=== PATIENT | female | born 1945 | race Caucasian/White ===

== ENCOUNTER → 2016-04-23 | Outpatient (CLI) | payer BC ==
[~2016-04-23] MED LIST: AMIO200T4 PO; AMR2 PO; CETI10TA84 PO; CRD200 PO; CYAN3INJ IM; DILT120C PEG; DILT120C PO; DILT120C68 PO; DULA1INJ SC; ERGO500037 PO; EZET10TA47 PO; GLIM2TAB2 PO; LEVO125T72 PO; LEVO137T3 PO; METF1000 PO; OMEG1360 PO; POTA20TA13 PO; POTA20TA16 PO; PRAV10TA39 PO; RANI150C4 PO; RANI150T2 PO; SERT50TA PO; SYN137 PO; TRIA37.5 PO; WARF-246 PO; WARF5TAB7 PO; ZLF/50 PO; [UNRECOGNIZED DRUG - CODE] PO; [UNRECOGNIZED DRUG - CODE] TOP
--- NOTE | 2016-04-29 07:16 | CODING QUERY NO DIAGNOSIS ---
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 Please assist us with providing a diagnosis/symptom for the test(s) below: A diagnosis/symptom was not documented on your Order. A valid diagnosis/symptom is required to bill all insurances. Please remember that we are unable to code a diagnosis of rule out, probable, possible, questionable, or suspected. Tests that require a diagnosis: * ERYTHROCYTE SEDIMENT DOS: 04/23/16 DIAGNOSIS: * C-REACTIVE PROTEIN DOS: 04/23/16 DIAGNOSIS: Provider Signature: Date: Thank you Kristen Plummer Health Information Management Once completed, please kindly fax back to [phone] For questions please call [phone]
== END | disposition home or self-care (01) ==
LOC: C.LABMFLN 09:18
PROVIDERS: ATTEND Optometrist
DX: M31.6 Other giant cell arteritis (principal)

== ENCOUNTER → 2016-07-07 | Day surgery (SDC) | payer BC ==
[2016-06-17 11:34] VITALS: BMI 44.0
[2016-06-30 15:50] VITALS: Ht 152.4 cm; Wt 102.3 kg
[~2016-07-07] VITALS: Ht 152.4 cm; Wt 102.3 kg
[~2016-07-07] MED LIST changes: +500ML BSS 0.3ML EPI 1:1000PF IRRIG ONE; +ACETAMINOPHEN 325 MG TAB PO PRN; +AMVISC PLUS 0.8ML SYRINGE INT OCU ONE; +ATROPINE SULFATE 0.1 MG/ML 5ML SYR IV PRN; +AcetaZOLAMIDE 250 MG TAB PO SCH; +BETAXOLOL HCL 0.25% OP SUSP PER DROP CHARGE OPL SCH; +BRIMONIDINE TART 0.2% OP SOLN PER DROP CHARGE ONE; +BSS FLUSH ONE; -CRD200 PO; +CYCLOPENTOLATE HCL 1% OP SOLN PER DROP CHARGE OPL SCH; +ENDOCOAT 0.85ML SYRINGE INT OCU ONE; -ERGO500037 PO; -EZET10TA47 PO; +EpHEDrine SULFATE INJ 50 MG/ML AMP IV PRN; +EpINEphrine INJ 1MG/ML AMP 1 MG/ML AMP ONE; +FENTANYL CITRATE INJ 50 MCG/1 ML 2 ML VIAL ONE; +LACTATED RINGER'S 1000ML 500 ML IV SCH; -LEVO125T72 PO; +LIDOCAINE 4% OP SOLN DROP CHARGE ONE; +LIDOCAINE 4% OP SOLN DROP CHARGE OPL SCH; +LIDOCAINE HCL 1% MPF 2 ML VIAL ONE; -METF1000 PO; +MIDAZOLAM HCL 1 MG/ML 2ML VIAL ONE; +MIX: 4ML BSS 1ML EPI 1:1000 PF INSTIL ONE; +MOXIFLOXACIN OPH SOLN PER DROP CHARGE ONE; +MOXIFLOXACIN OPH SOLN PER DROP CHARGE OPL SCH; +OCUCOAT 1 ML SOLN IO ONE; +PHENYLEPHRINE HCL 2.5% OP SOLN PER DROP CHARGE OPL SCH; +POVIDONE-IODINE OP SOLN 30 ML BTL ONE; +PROPARACAINE 0.5% OP SOLN PER DROP CHARGE OPL SCH; +TOBRAMYCIN/DEXAMETHASONE OPH OINT PER APPLN CHARGE ONE; +TROPICAMIDE 1% OP SOLN PER DROP CHARGE OPL SCH; -WARF-246 PO; -[UNRECOGNIZED DRUG - CODE] TOP
--- NOTE | 2016-07-07 07:33 | History & Physical Bridge - SC ---
H&P Re-Evaluation Bridge Note: I have examined the patient, reviewed the History & Physical and in the interval since the performance of the History & Physical I have noted the following changes of clinical significance: No changes noted
[2016-07-07] MEDS: PHENYLEPHRINE HCL 2.5% OP SOLN PER DROP CHARGE OPL SCH ×2 (07:53→07:58)
[2016-07-07] MEDS: TROPICAMIDE 1% OP SOLN PER DROP CHARGE OPL SCH ×2 (07:54→07:59)
[2016-07-07] MEDS: CYCLOPENTOLATE HCL 1% OP SOLN PER DROP CHARGE OPL SCH ×2 (07:55→08:00)
[2016-07-07] MEDS: MOXIFLOXACIN OPH SOLN PER DROP CHARGE OPL SCH ×2 (07:56→08:06)
[2016-07-07] MEDS: POVIDONE-IODINE OP SOLN 30 ML BTL ONE ×2 (08:55→08:58)
--- NOTE | 2016-07-07 09:03 | Discharge Instructions-SurgCtr ---
Discharge Instructions Date of Service Jul 07, 2016. Visit Reason for Visit: Cataract Left Eye Discharge Discharge Diagnosis / Problem: lens implant left eye Discharge Goals Goal(s): Improve function Activity Recommendations Activity Limitations: resume your previous activity Lifting Limitations: no more than 10 pounds Exercise/Sports Limitations: gradually increase as tolerated May Resume Sexual Activity: when tolerated Shower/Bathe: tomorrow Driving or Machine Use: resume 1 day after discharge Anesthesia . Post Anesthesia Instructions: If you have had General Anesthesia or IV Sedation: * Do not drive today. * Resume driving when surgeon permits. * Do not make important decisions or sign legal documents today. * Call surgeon for: 1. Temperature elevations greater than 101 degrees F. 2. Uncontrollable pain. 3. Excessive bleeding. 4. Persistent nausea and vomiting. 5. Medication intolerance (nausea, vomiting or rash). * For nausea and vomiting use only clear liquids such as: tea, soda, bouillon until nausea subsides, then gradually increase diet as tolerated. * If you have any concerns or questions, call your surgeon's office. If physician is unavailable and it is an emergency, call 911 or go to the nearest emergency room. . Instructions / Follow-Up Instructions / Follow-Up ACTIVITY RECOMMENDATIONS: * Light activities. * Mild irritation and blurred vision are common for the first few days. * You may walk outside, read, watch television. * Redness around the white part of the eye is common. MEDICATIONS: Resume previous medications unless instructed otherwise by your surgeon. * Take white Diamox (Acetazolamide) tablet at 1 pm today. Start all eye drops at 1 pm today: * Eye drops (today and tomorrow): Prednisone - one drop in operative eye every 3 hours while awake Ofloxacin - one drop in operative eye every 3 hours while awake SPECIAL CARE INSTRUCTIONS: * Tape plastic shield over eye to sleep at night. Call your doctor at with any concerns or problems. FOLLOW UP VISIT: Follow-up with Dr Frost at [place] office as scheduled. Diet Recommendations Home Diet: no limitations Procedures Procedures Performed: cataract extraction with lens implant Pending Studies Studies pending at discharge: no Medical Emergencies . Who to Call and When: Medical Emergencies: If at any time you feel your situation is an emergency, please call 911 immediately. . Non-Emergent Contact Non-Emergency issues call your: Engineer Specialist Call Non-Emergent contact if: your pain is not controlled [phone] . . "Provider Documentation" section prepared by Neil Frost.
--- NOTE | 2016-07-07 09:05 | [facility] Operative Report ---
Operative Report Date of Service Jul 07, 2016. Operative Report 1. PREOPERATIVE DIAGNOSIS: Senile nuclear cataract, left eye. 2. POSTOPERATIVE DIAGNOSIS: Senile nuclear cataract, left eye. 3. PROCEDURE: Phacoemulsification of left cataract with posterior chamber lens implant, type [employer], model MI60L, power +18.0 diopters. ANESTHESIA: Local standby. SURGEON: Dr. Frost. COMPLICATIONS: None. OPERATING TIME: 10 minutes. 4. OPERATION AND FINDINGS: DESCRIPTION OF PROCEDURE: The left pupil was dilated. The anesthetic was administered using a topical technique. The left eye was prepped and draped. A speculum was placed. A clear corneal incision was formed. The chamber was filled with Amvisc Plus and Endocoat. Epinephrine solution was used. A paracentesis was placed. A capsulorrhexis was performed. The nucleus was hydrodissected. A dense lens was removed with phacoemulsification. Time was 7.02 seconds. The aspiration unit was used to remove the cortex. The capsule was filled with Amvisc Plus. The lens implant was folded and placed into the capsule. The incision was hydrated. The Amvisc was aspirated. The wound was secure. The chamber was deep. The pupil was round. TobraDex ointment and Vigamox solution were placed. The speculum was removed. The patient was returned to the Recovery Room in stable condition. I attest to the content of the Intraoperative Record and any orders documented therein. Any exceptions are noted below. The scribe's documentation has been prepared in my presence, under my direction and personally reviewed by me in its entirety. I confirm that the note above accurately reflects all work, treatment, procedures, and medical decision making performed by me. I personally scribed for Neil Frost M.D. ([email or web address]) on 07/07/16 at 09:05. Electronically submitted by Giulia Lovett ([facility]).
[2016-07-07 09:10] VITALS: TEMP 36.5
[2016-07-07 09:35] VITALS: BP 146/73; PULSE 72; O2SAT 97
--- NOTE | 2016-07-07 09:48 | Anesthesia Progress Nt - [facility] ---
Anesthesia Post Op Note Date & Time Jul 07, 2016 at 09:48 Vital Signs Pain Intensity: 0 Vital Signs Past 12 Hours Date Time Temp Pulse Resp B/P Pulse Ox O2 Delivery O2 Flow Rate FiO2 07/07/16 09:35 72 146/73 97 Room Air 07/07/16 09:10 36.5 59 20 152/73 94 Room Air 07/07/16 08:08 36.5 67 16 172/79 96 Room Air Notes Mental Status: alert / awake / arousable, participated in evaluation Pt Amnestic to Procedure: Yes Nausea / Vomiting: adequately controlled Pain: adequately controlled Airway Patency, RR, SpO2: stable & adequate BP & HR: stable & adequate Hydration State: stable & adequate Anesthetic Complications: no major complications apparent The patient was instructed to wear her CPAP whenever she thinks she may fall asleep for the next 24 hours at least as the anesthesia may make her more prone to apnea. She understands and agrees.
== END | disposition home or self-care (01) ==
LOC: X.SURG 07:29
PROVIDERS: ATTEND Specialist
DX: H25.12 Age-related nuclear cataract, left eye (principal); I10 Essential (primary) hypertension; I51.9 Heart disease, unspecified; Z88.8 Allergy status to other drugs, medicaments and biological substances

== ENCOUNTER → 2016-07-29 | Outpatient (CLI) | payer BC ==
[~2016-07-29] MED LIST changes: -500ML BSS 0.3ML EPI 1:1000PF IRRIG ONE; -ACETAMINOPHEN 325 MG TAB PO PRN; -AMVISC PLUS 0.8ML SYRINGE INT OCU ONE; -ATROPINE SULFATE 0.1 MG/ML 5ML SYR IV PRN; -AcetaZOLAMIDE 250 MG TAB PO SCH; -BETAXOLOL HCL 0.25% OP SUSP PER DROP CHARGE OPL SCH; -BRIMONIDINE TART 0.2% OP SOLN PER DROP CHARGE ONE; -BSS FLUSH ONE; -CYCLOPENTOLATE HCL 1% OP SOLN PER DROP CHARGE OPL SCH; -ENDOCOAT 0.85ML SYRINGE INT OCU ONE; -EpHEDrine SULFATE INJ 50 MG/ML AMP IV PRN; -EpINEphrine INJ 1MG/ML AMP 1 MG/ML AMP ONE; -FENTANYL CITRATE INJ 50 MCG/1 ML 2 ML VIAL ONE; -LACTATED RINGER'S 1000ML 500 ML IV SCH; -LIDOCAINE 4% OP SOLN DROP CHARGE ONE; -LIDOCAINE 4% OP SOLN DROP CHARGE OPL SCH; -LIDOCAINE HCL 1% MPF 2 ML VIAL ONE; -MIDAZOLAM HCL 1 MG/ML 2ML VIAL ONE; -MIX: 4ML BSS 1ML EPI 1:1000 PF INSTIL ONE; -MOXIFLOXACIN OPH SOLN PER DROP CHARGE ONE; -MOXIFLOXACIN OPH SOLN PER DROP CHARGE OPL SCH; -OCUCOAT 1 ML SOLN IO ONE; -PHENYLEPHRINE HCL 2.5% OP SOLN PER DROP CHARGE OPL SCH; -POVIDONE-IODINE OP SOLN 30 ML BTL ONE; -PROPARACAINE 0.5% OP SOLN PER DROP CHARGE OPL SCH; -TOBRAMYCIN/DEXAMETHASONE OPH OINT PER APPLN CHARGE ONE; -TROPICAMIDE 1% OP SOLN PER DROP CHARGE OPL SCH
[2016-07-29 18:06] LABS: HEMATOCRIT 38.7 % (37-47); MEAN CELL VOLUME 82.5 fL (80-100); MEAN CORPUSCULAR HEMOGLOBIN 25.6 pg (25-34); PLATELET COUNT 192 K/uL (130-400); RED BLOOD COUNT 4.69 M/uL (4.2-5.4)
== END | disposition home or self-care (01) ==
LOC: C.LABMFLN 10:51
PROVIDERS: ATTEND Family Medicine
DX: M10.9 Gout, unspecified (principal)

== ENCOUNTER → 2016-08-31 | Outpatient (CLI) | payer BC ==
[2016-08-31 17:44] LABS: HEMATOCRIT 38.5 % (37-47); MEAN CELL VOLUME 84.2 fL (80-100); MEAN CORPUSCULAR HEMOGLOBIN 25.8 pg (25-34); MEAN CORPUSCULAR HGB CONC 30.6 g/dl (32-36); MEAN PLATELET VOLUME 11.7 fL (7.4-10.4); PLATELET COUNT 210 K/uL (130-400); RED BLOOD COUNT 4.57 M/uL (4.2-5.4); WHITE BLOOD COUNT 7.29 K/uL (4.8-10.8)
[2016-08-31 18:07] LABS: ALT/SGPT 52 U/L (12-78); AST/SGOT 60 U/L (15-37); BLOOD UREA NITROGEN 18 mg/dl (7-18); BUN/CREATININE RATIO 16.2 (10-20); CALCIUM 9.3 mg/dl (8.5-10.1); CARBON DIOXIDE 31 mmol/L (21-32); CHLORIDE 107 mmol/L (98-107); GLUCOSE 116 mg/dl (70-99); POTASSIUM 3.8 mmol/L (3.5-5.1); SODIUM 143 mmol/L (136-145)
[2016-09-01 05:51] LABS: ESTIMATED AVERAGE GLUCOSE 180 mg/dl; HA1C FLAG Normal (Normal)
== END | disposition home or self-care (01) ==
LOC: C.LABMFLN 13:59
PROVIDERS: ATTEND Family Medicine
DX: E11.9 Type 2 diabetes mellitus without complications (principal); I10 Essential (primary) hypertension; E78.5 Hyperlipidemia, unspecified; I47.2 Ventricular tachycardia; Z79.01 Long term (current) use of anticoagulants; R94.2 Abnormal results of pulmonary function studies; Z79.899 Other long term (current) drug therapy; R74.0 Nonspecific elevation of levels of transaminase and lactic acid dehydrogenase [LDH]; I48.0 Paroxysmal atrial fibrillation

== ENCOUNTER → 2016-09-20 | Outpatient (CLI) | payer BC ==
--- NOTE | 2016-09-20 16:22 | DIAGNOSTIC IMAGING REPORT ---
[facility] CLINICAL HISTORY: N20.0 [id number] flank pain COMPARISON STUDY: 11/05/2015 FINDINGS: Nonobstructive bowel pattern. No evidence for significant nephrocalcinosis. Several right and to lesser extent left pelvic vascular calcifications unchanged. IMPRESSION: No evidence for nephrocalcinosis. No change from the prior study. Electronically signed by: Issa Vigil M.D. 09/20/2016 4:21 PM Dictated Date/Time: 09/20/2016 4:20 PM
== END | disposition home or self-care (01) ==
LOC: C.RAD 15:48
PROVIDERS: ATTEND Urology
DX: R31.29 Other microscopic hematuria (principal); N39.41 Urge incontinence; N20.0 Calculus of kidney

== ENCOUNTER 2016-11-13 21:15 | Emergency (ER) | payer BC ==
[~2016-11-13 21:15] MED LIST changes: -AMIO200T4 PO; -AMR2 PO; -DILT120C PEG; -DILT120C PO; -DULA1INJ SC; -POTA20TA13 PO; -RANI150T2 PO; -SYN137 PO; -ZLF/50 PO
[2016-11-13 21:18] VITALS: TEMP 36.8; Ht 152.4 cm
--- NOTE | 2016-11-13 21:39 | EMERGENCY ROOM VISIT NOTE ---
History First contact with patient: 21:21 Chief Complaint: ANKLE PAIN Stated Complaint: HURT LEFT ANKLE History of Present Illness The patient is a 70 year old female who presents to the Emergency Room via private vehicle with complaints of "her left ankle". The patient states that earlier today, around 8 AM, she was going outside to collect her morning paper, when her left foot twisted inward. She states that she experienced immediate pain, and has had difficulty walking on this region. If she bears weight on the left foot/ankle pain as a 10/10. At rest the pain is very minimal. She denies any numbness or tingling in the distal extremity. She points to the base of the left fifth metatarsal as a location of pain. Review of Systems A complete 6-point Review of Systems was discussed with the patient, with pertinent positives and negatives listed in the History of Present Illness. All remaining Review of Systems questions can be considered negative unless otherwise specified. Past Medical/Surgical History Medical Problems: (1) Atrial fibrillation (2) Benign hypertension (3) Cholecystectomy (4) Diabetes mellitus (5) Heart disease (6) Surgery of Retina Family History No pertinent. Social History Smoking Status: Never Smoker Alcohol Use: none Marital Status: Housing Status: lives with family Occupation Status: unemployed Current/Historical Medications Scheduled Amiodarone Hcl (Cordarone), 200 MG PO DAILY Diltiazem Hcl Coated Beads (Diltiazem Hcl Er), 240 MG PO QAM Diltiazem Hcl Coated Beads (Diltiazem Hcl Er), 120 MG PEG HS Dulaglutide (Trulicity), 0.75 MG SC WK Glimepiride (Glimepiride), 4 MG PO BID Levothyroxine Sodium (Levothyroxine Sodium), 137 MCG PO DAILY Kingsley-3 Fatty Acids (Fish Oil), 1 CAP PO BID Potassium Chloride Microencaps (Potassium Chloride Er), 20 MEQ PO DAILY Pravastatin Sodium (Pravastatin Sodium), 10 MG PO HS Ranitidine HCl (Ranitidine HCl), 150 MG PO BID Sertraline HCl (Sertraline HCl), 50 MG PO DAILY Triamterene/Hctz (Dyazide 37.5MG/25MG), 1 TAB PO QAM Warfarin Sod (Jantoven), 5 MG PO DAILY Physical Exam Vital Signs Date Time Temp Pulse Resp B/P (MAP) Pulse Ox O2 Delivery O2 Flow Rate FiO2 7/29/17 22:42 75 18 186/77 95 11/13/16 21:18 36.8 75 18 186/77 95 Room Air Physical Exam VITAL SIGNS - Vital signs and nursing notes were reviewed. Afebrile, hypertensive at 186/77, non-tachycardic and is saturating well on room air 95%. GENERAL -70-year-old female appearing her stated age who is in no acute distress. Communicates well with provider and answers questions appropriately. SKIN - Without rashes. Skin overlying the left ankle is slightly edematous, but intact. No excessive erythema.ons or visible masses. BS normoactive all four quadrants. No tenderness, palpable masses, hepatosplenomegaly, or ascites noted. EXTREMITIES - No clubbing or peripheral cyanosis. No pretibial edema present. There is tenderness to palpation overlying the base of the fifth metatarsal. There is overlying edema. Decreased range of motion secondary to pain. There is no proximal or distal tenderness. She is neurovascularly intact in this region. Medical Decision & Procedures ER Provider Diagnostic Interpretation: LEFT FOOT MIN 3 VIEWS ROUTINE CLINICAL HISTORY: Left foot pain s/p inversion injury. 5th metatarsal tenderness COMPARISON: None FINDINGS: Alignment of the tarsometatarsal joints is anatomic anatomic. No acute fracture is identified within the left foot. Moderate osteoarthritis is noted within multiple articulations of the left foot, most pronounced within the left first metatarsophalangeal joint. There is moderate vascular calcification. IMPRESSION: 1. No acute fracture or dislocation of the left foot. 2. 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 Electronically signed by: Yash Rolle M.D. 11/13/2016 10:04 PM Dictated Date/Time: 11/13/2016 10:02 PM LEFT TIBIA/FIBULA 2 VIEWS ROUTINE CLINICAL HISTORY: Left foot pain s/p inversion injury. 5th metatarsal tenderness. COMPARISON: None FINDINGS: Alignment of the left knee and left ankle is anatomic. A few well-corticated ossicles along the fibular tip are age-indeterminate but likely old. There is moderate vascular calcification. No acute fracture of the left tibia or fibula is identified. There is chondrocalcinosis within the left knee. There is patellar spurring. IMPRESSION: 1. No definite acute fracture of the left tibia or fibula. 2. A few well-corticated ossicles along the fibular tip. These are age-indeterminate but probably old. Electronically signed by: Yash Rolle M.D. 11/13/2016 10:01 PM Dictated Date/Time: 11/13/2016 9:59 PM Medical Decision Patient was seen and evaluated as above. After pain a thorough history and physical examination radiographs were obtained with results as above. No acute fracture dislocation. Patient fell landing for pain. She was also seen by my attending. She was educated upon today's findings. There is concern over a potential new avulsion fracture, therefore we will fit her with a walking boot secondary to her noting the crutches would not work well. She is going to use her walker at home. She is to follow-up with her family doctor regarding today' s visit. They have been copied on her x-rays today. She is to follow up regarding her elevated blood pressure here today. She was educated upon worrisome symptoms which to return, had questions prior to discharge, and was discharged home in good condition. In the evaluation and treatment of this patient, the following differential diagnoses were considered: Ankle Fracture, Ankle Sprain, Distal Fibula Fracture , Distal Tibia Fracture, Foot Fracture, Maisonneuve Fracture. Medication Reconcilliation Current Medication List: was personally reviewed by me Blood Pressure Screening Patient's blood pressure: Elevated blood pressure Blood pressure disposition: Elevated BP felt to be situational, Referred to PCP Impression Primary Impression: Left ankle pain Departure Information Dispostion Home / Self-Care Condition GOOD Referrals Pilar Robertson M.D. (PCP) Benjamin Ye D.O. Patient Instructions My [facility] Additional Instructions You have been treated in the Emergency Department for a left Ankle pain. For pain control, you can use the following [id number] medicines (if >12 yo): - Regular strength (325mg/tab) Tylenol (acetaminophen) 2 tabs every 4-6 hours as needed. Do not exceed 12 tablets in a 24 hour period. Avoid taking more than 3 grams (3000 mg) of Tylenol per day. This includes any other sources of acetaminophen you may take on a regular basis. - Regular strength (200 mg/tab) Advil (ibuprofen) 1-2 tabs every 4-6 hours as needed. Do not exceed a dose of 3200 mg per day. If this is a recent injury (<24 hrs), ice can be applied to the area of pain for the first 3 days to help decrease pain and inflammation. You have been provided the number for an Orthopaedic Surgeon. You should call this number as soon as possible to establish a follow-up visit from today's Emergency Department visit. Keep the ankle brace/splint in place until cleared by Orthopedics/ family doctor. Please use your walker to keep ALL weight off of the ankle until weight bearing is tolerable. Return to the Emergency Department if your current symptoms worsen despite treatment course outlined above, or if you develop any of the following symptoms : intractable pain despite aforementioned treatment course or new onset of numbness or tingling of the foot. Please return to the emergency department with any new/ concerning symptoms.
--- NOTE | 2016-11-13 21:58 | EMERGENCY ROOM VISIT NOTE ---
ED Visit Note First contact with patient: 21:21 This Patient was discussed with the physician Clerical Clerk, Kyle Barajas PA-C. The pertinent historical and physical exam findings were confirmed. I agree with the studies ordered and with the interpretations of these studies. I agree with the disposition and care plan.
--- NOTE | 2016-11-13 22:03 | DIAGNOSTIC IMAGING REPORT ---
LEFT TIBIA/FIBULA 2 VIEWS ROUTINE CLINICAL HISTORY: Left foot pain s/p inversion injury. 5th metatarsal tenderness. COMPARISON: None FINDINGS: Alignment of the left knee and left ankle is anatomic. A few well-corticated ossicles along the fibular tip are age-indeterminate but likely old. There is moderate vascular calcification. No acute fracture of the left tibia or fibula is identified. There is chondrocalcinosis within the left knee. There is patellar spurring. IMPRESSION: 1. No definite acute fracture of the left tibia or fibula. 2. A few well-corticated ossicles along the fibular tip. These are age-indeterminate but probably old. Electronically signed by: Yash Rolle M.D. 11/13/2016 10:01 PM Dictated Date/Time: 11/13/2016 9:59 PM
--- NOTE | 2016-11-13 22:05 | DIAGNOSTIC IMAGING REPORT ---
LEFT FOOT MIN 3 VIEWS ROUTINE CLINICAL HISTORY: Left foot pain s/p inversion injury. 5th metatarsal tenderness COMPARISON: None FINDINGS: Alignment of the tarsometatarsal joints is anatomic anatomic. No acute fracture is identified within the left foot. Moderate osteoarthritis is noted within multiple articulations of the left foot, most pronounced within the left first metatarsophalangeal joint. There is moderate vascular calcification. IMPRESSION: 1. No acute fracture or dislocation of the left foot. 2. 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 Electronically signed by: Yash Rolle M.D. 11/13/2016 10:04 PM Dictated Date/Time: 11/13/2016 10:02 PM
[2016-11-13] MEDS ORDERED: RANI150T2 PO (22:31)
[2016-11-13] MEDS ORDERED: AMIO200T4 PO (22:31)
[2016-11-13] MEDS ORDERED: ZLF/50 PO (22:31)
[2016-11-13] MEDS ORDERED: DILT120C PEG (22:31)
[2016-11-13] MEDS ORDERED: DULA1INJ SC (22:31)
[2016-11-13] MEDS ORDERED: SYN137 PO (22:31)
[2016-11-13] MEDS ORDERED: DILT120C PO (22:31)
[2016-11-13] MEDS ORDERED: AMR2 PO (22:31)
[2016-11-13] MEDS ORDERED: POTA20TA13 PO (22:32)
[2016-11-13 22:42] VITALS: BP 186/77; PULSE 75; O2SAT 95
== END 2016-11-13 22:43 | disposition home or self-care (01) ==
LOC: C.EDB 21:16 → C.EDD 22:43
DX: M25.572 Pain in left ankle and joints of left foot (principal); I48.91 Unspecified atrial fibrillation; I10 Essential (primary) hypertension; E11.9 Type 2 diabetes mellitus without complications; I51.9 Heart disease, unspecified; Z90.49 Acquired absence of other specified parts of digestive tract; Z98.890 Other specified postprocedural states; Z79.01 Long term (current) use of anticoagulants; Z79.899 Other long term (current) drug therapy

== ENCOUNTER → 2016-12-16 | Outpatient (CLI) | payer BC ==
[~2016-12-16] MED LIST changes: +AMIO200T4 PO; +AMR2 PO; -CETI10TA84 PO; -CYAN3INJ IM; +DILT120C PEG; +DILT120C PO; -DILT120C68 PO; +DULA1INJ SC; -GLIM2TAB2 PO; -LEVO137T3 PO; +POTA20TA13 PO; -POTA20TA16 PO; -RANI150C4 PO; +RANI150T2 PO; -SERT50TA PO; +SYN137 PO; +ZLF/50 PO; -[UNRECOGNIZED DRUG - CODE] PO
[2016-12-16 18:37] LABS: RATIO 40.8 mcg/mg (0-30.0)
[2016-12-17 06:36] LABS: ESTIMATED AVERAGE GLUCOSE 151 mg/dl; HA1C FLAG Normal (Normal)
== END | disposition home or self-care (01) ==
LOC: C.LABMFLN 14:18
PROVIDERS: ATTEND Family Medicine
DX: E11.9 Type 2 diabetes mellitus without complications (principal)

== ENCOUNTER → 2017-03-29 | Outpatient (CLI) | payer BC ==
[2017-03-30 08:01] LABS: ESTIMATED AVERAGE GLUCOSE 157 mg/dl; HA1C FLAG Normal (Normal)
== END | disposition home or self-care (01) ==
LOC: C.LABMFLN 15:25
PROVIDERS: ATTEND Family Medicine
DX: E11.9 Type 2 diabetes mellitus without complications (principal)

== ENCOUNTER → 2017-10-06 | Outpatient (CLI) | payer BC ==
[~2017-10-06] MED LIST changes: +CYNI1000 IM; +DILT-213 PO; -DILT120C PEG; -DILT120C PO; +ENOX30IN4 SQ; +FURO-85 PO; +INSU100I23 SC; +LEVO125T72 PO; +SITA100T3 PO; +WARF2.5T8 PO
[2017-10-06 18:25] LABS: BLOOD UREA NITROGEN 18 mg/dl (7-18); CALCIUM 8.7 mg/dl (8.5-10.1); CARBON DIOXIDE 30 mmol/L (21-32); CREATININE 1.13 mg/dl (0.60-1.20); GLUCOSE 153 mg/dl (70-99); POTASSIUM 3.8 mmol/L (3.5-5.1); SODIUM 142 mmol/L (136-145)
== END | disposition home or self-care (01) ==
LOC: C.LABMFLN 12:00
PROVIDERS: ATTEND Family Medicine
DX: I50.9 Heart failure, unspecified (principal)

== ENCOUNTER → 2017-11-07 | Outpatient (CLI) | payer BC ==
[~2017-11-07] MED LIST changes: -DULA1INJ SC; -SYN137 PO; -TRIA37.5 PO
--- NOTE | 2017-11-07 08:00 | DIAGNOSTIC IMAGING REPORT ---
ABDOMINAL ULTRASOUND, RIGHT UPPER QUADRANT HISTORY: Gastric varices. COMPARISON: [facility] September 20, [address] of the abdomen and pelvis April 18, 2014. FINDINGS: Coarsening of hepatic echotexture and slight nodularity of the liver surface are indicative of cirrhosis. Flow within the main portal vein is hepatopedal. No hepatic lesions are identified by sonography. There is trace perihepatic ascites. No biliary ductal dilatation is identified status post cholecystectomy. Common bile measures 5 mm in caliber. Pancreatic body is normal. Head and tail are obscured. There is no right hydronephrosis. IMPRESSION: 1. Cirrhosis. No hepatic lesions identified by sonography. 2. Trace perihepatic ascites. 3. No biliary ductal dilatation status post cholecystectomy. Electronically signed by: Yash Rolle M.D. 11/07/2017 7:58 AM Dictated Date/Time: 11/07/2017 7:57 AM
== END | disposition home or self-care (01) ==
LOC: C.ULTR 07:09
PROVIDERS: ATTEND Internal Medicine
DX: I86.4 Gastric varices (principal); K74.60 Unspecified cirrhosis of liver

== ENCOUNTER → 2017-11-15 | Outpatient (CLI) | payer BC ==
[2017-11-15 17:59] LABS: BASO % 0.2 %; BASO ABS # 0.01 K/uL (0-0.2); EOS % 1.8 %; HEMATOCRIT 36.5 % (37-47); HEMOGLOBIN 10.8 g/dL (12.0-16.0); IG# 0.01 K/uL (0.00-0.02); LYMPH % 16.3 %; LYMPH ABS # 0.91 K/uL (1.2-3.4); MEAN CELL VOLUME 77.7 fL (80-100); MEAN CORPUSCULAR HGB CONC 29.6 g/dl (32-36); MEAN PLATELET VOLUME 11.9 fL (7.4-10.4); NEUT % 72.5 %; NEUT ABS # 4.05 K/uL (1.4-6.5); PLATELET COUNT 142 K/uL (130-400); RED CELL DISTRIBUTION WIDTH CV 18.3 % (11.5-14.5); RED CELL DISTRIBUTION WIDTH SD 51.9 fL (36.4-46.3); WHITE BLOOD COUNT 5.58 K/uL (4.8-10.8)
[2017-11-15 18:03] LABS: ALBUMIN 3.6 gm/dl (3.4-5.0); ALKALINE PHOSPHATASE 98 U/L (45-117); ALT/SGPT 33 U/L (12-78); AST/SGOT 55 U/L (15-37); BLOOD UREA NITROGEN 14 mg/dl (7-18); CALCIUM 9.1 mg/dl (8.5-10.1); CARBON DIOXIDE 32 mmol/L (21-32); CREATININE 1.25 mg/dl (0.60-1.20); GLUCOSE 178 mg/dl (70-99); POTASSIUM 2.9 mmol/L (3.5-5.1); SODIUM 143 mmol/L (136-145); TOTAL PROTEIN 7.5 gm/dl (6.4-8.2)
== END | disposition home or self-care (01) ==
LOC: C.LABMFLN 13:01
PROVIDERS: ATTEND Family Medicine
DX: K74.60 Unspecified cirrhosis of liver (principal)

== ENCOUNTER → 2017-11-24 | Outpatient (CLI) | payer BC ==
[2017-11-24 18:20] LABS: ALBUMIN 3.4 gm/dl (3.4-5.0); BLOOD UREA NITROGEN 12 mg/dl (7-18); CALCIUM 8.6 mg/dl (8.5-10.1); CARBON DIOXIDE 26 mmol/L (21-32); CREATININE 1.29 mg/dl (0.60-1.20); GLUCOSE 159 mg/dl (70-99); PHOSPHORUS 2.7 mg/dl (2.5-4.9); POTASSIUM 3.2 mmol/L (3.5-5.1); SODIUM 144 mmol/L (136-145)
== END | disposition home or self-care (01) ==
LOC: C.LABMFLN 15:25
PROVIDERS: ATTEND Family Medicine
DX: I50.9 Heart failure, unspecified (principal)

== ENCOUNTER → 2017-12-01 | Outpatient (CLI) | payer BC ==
[2017-12-01 18:35] LABS: ALBUMIN 3.5 gm/dl (3.4-5.0); BLOOD UREA NITROGEN 13 mg/dl (7-18); CALCIUM 8.8 mg/dl (8.5-10.1); CARBON DIOXIDE 30 mmol/L (21-32); CREATININE 1.28 mg/dl (0.60-1.20); GLUCOSE 66 mg/dl (70-99); PHOSPHORUS 2.7 mg/dl (2.5-4.9); POTASSIUM 2.9 mmol/L (3.5-5.1); SODIUM 142 mmol/L (136-145)
== END | disposition home or self-care (01) ==
LOC: C.LABMFLN 13:38
PROVIDERS: ATTEND Family Medicine
DX: E87.6 Hypokalemia (principal)

== ENCOUNTER → 2017-12-08 | Outpatient (CLI) | payer BC ==
[~2017-12-08] MED LIST changes: +DULA1INJ SC; +SYN137 PO; +TRIA37.5 PO
[2017-12-08 18:05] LABS: ALBUMIN 3.6 gm/dl (3.4-5.0); BLOOD UREA NITROGEN 13 mg/dl (7-18); CALCIUM 9.2 mg/dl (8.5-10.1); CARBON DIOXIDE 27 mmol/L (21-32); CREATININE 1.44 mg/dl (0.60-1.20); GLUCOSE 124 mg/dl (70-99); PHOSPHORUS 3.2 mg/dl (2.5-4.9); POTASSIUM 3.2 mmol/L (3.5-5.1); SODIUM 143 mmol/L (136-145)
== END | disposition home or self-care (01) ==
LOC: C.LABMFLN 15:33
PROVIDERS: ATTEND Family Medicine
DX: E87.6 Hypokalemia (principal); Z11.59 Encounter for screening for other viral diseases

== ENCOUNTER 2018-05-08 16:54 | Inpatient (IN) ==
[2018-05-08 17:56] LABS: Basophils # (auto) 0.02 K/uL (0-0.2); Basophils % (auto) 0.3 %; Eosinophils # (auto) 0.04 K/uL (0-0.5); Eosinophils % (auto) 0.5 %; Hematocrit (blood only) 36.3 % (37-47); Hemoglobin 11.3 g/dL (12.0-16.0); Immature Granulocytes # (auto) 0.02 K/uL (0.00-0.02); Immature Granulocytes % (auto) 0.3 %; Lymphocytes # (auto) 0.72 K/uL (1.2-3.4); Lymphocytes % (auto) 9.2 %; Mean Corpuscular Hgb Conc 31.1 g/dL (32-36); Mean Corpuscular Volume 83.3 fL (80-100); Mean Platelet Volume 10.9 fL (7.4-10.4); Monocytes # (auto) 0.54 K/uL (0.11-0.59); Monocytes % (auto) 6.9 %; Neutrophils # (auto) 6.45 K/uL (1.4-6.5); Neutrophils % (auto) 82.8 %; Platelet Count 247 K/uL (130-400); RDW Coefficient of Variation 16.8 % (11.5-14.5); RDW Standard Deviation 51.4 fL (36.4-46.3); Red Blood Count 4.36 M/uL (4.2-5.4); White Blood Count 7.79 K/uL (4.8-10.8)
--- NOTE | 2018-05-08 18:05 | CT Scan Report ---
CT head/brain wo con CLINICAL HISTORY: Acute change in mental status. COMPARISON STUDY: 07/22/2012 TECHNIQUE: Axial CT of the brain is performed from the vertex to the skull base. IV contrast was not administered for this examination. A dose lowering technique was utilized adhering to the principles of ALARA. CT DOSE: 537.48 mGy.cm FINDINGS: No intra or extra-axial mass lesions are visualized. There is no CT evidence of acute cortical infarc tion. There is no evidence of midline shift. There is no acute hemorrhage. No calvarial fractures ar e visualized. There are minimal white matter hypodensities likely on a small vessel basis. There is no evidence of pathologic ventricular dilatation. There is no evidence of acute sinusitis. The patient is status post right orbital banding. IMPRESSION: No acute intracranial findings Electronically signed by: Kael Nobles M.D. 05/08/2018 6:03 PM
[2018-05-08 18:07] LABS: Alanine Aminotransferase 28 U/L (12-78); Aspartate Aminotransferase 60 U/L (15-37); BUN Creatinine Ratio 13.5 (10-20); Blood Urea Nitrogen 16 mg/dl (7-18); Calcium 8.7 mg/dl (8.5-10.1); Carbon Dioxide 22 mmol/L (21-32); Chloride 107 mmol/L (98-107); Est GFR (Non-African American) 47.5; Glucose 180 mg/dl (70-99); Magnesium 1.9 mg/dl (1.8-2.4); Potassium 3.3 mmol/L (3.5-5.1); Sodium 141 mmol/L (136-145)
[2018-05-08 18:15] LABS: Appearance Urine Clear (Clear); Bilirubin Urine Negative (Negative); Color Urine Yellow; Glucose Urine UA Negative (Negative); Ketones Urine Negative (Negative); Leukocyte Esterase Urine Negative (Negative); Nitrite Urine Negative (Negative); Protein Urine Negative (Negative); Specific Gravity Urine 1.012 (1.000-1.030); Urobilinogen Urine Negative (Negative); pH Urine 7.5 (4.5-7.5)
[2018-05-08 18:17] LABS: Albumin Globulin Ratio 0.6 (0.9-2); Alkaline Phosphatase 147 U/L (45-117); Bilirubin,Total 0.9 mg/dl (0.2-1); Globulin 4.8 gm/dl (2.5-4.0); Total Protein 7.8 gm/dl (6.4-8.2); Troponin I < 0.015 ng/ml (0-0.045)
--- NOTE | 2018-05-08 18:21 | XRay Report ---
XR chest 1V portable CLINICAL HISTORY: weakness FLUID RETENTION COMPARISON STUDY: 07/22/2012 FINDINGS: The heart is enlarged. There is radiographic evidence of congestive failure with minor rima a. There is no lobar consolidation. There are no significant pleural effusions.[ IMPRESSION: Cardiomegaly and radiographic evidence of congestive failure/fluid overload. Electronically signed by: Kael Nobles M.D. 05/08/2018 6:20 PM
--- NOTE | 2018-05-08 19:08 | Emergency Department Note ---
Entered by Ivy Hagen acting as a scribe for Catherine Elam MD History of Present Illness General Chief complaint: Illness Stated complaint: ILLNESS Source: patient and family (daughter) History of Present Illness Onset (ago): day(s) (a few days ago) Location: lower extremity (bilaterally) Pain Consistency: + constant Current Pain Intensity: 0 Quality: + other (difficulty moving) Associated symptoms: + denies other symptoms (abdominal pain) and + other ( distended abdomen, incontinence ); no nausea/vomiting The patient is a 72 year old female who presents to the Emergency Room with complaints of constant difficulty moving her lower extremities for the past few days. The patient's daughter, at bedside, states that the patient has been sleeping for 16-18 hours a day for the past 6 months. She states that she was recently prescribed medication to "keep her awake." The patient states that she was diagnosed with gout in her foot, and she was prescribed medication for it. She reports that she was called the next day, after being diagnosed with this, and she was told that it was not gout. The patient's daughter complains of incontinence and a distended abdomen. The patient denies any pain. She denies any vomiting or abdominal pain. The patient's daughter notes that the patient has a history of CHF, diabetes, fatty liver, cirrhosis of the liver, UTI, and confusion. Home Medications Home Medications Medication Instructions Recorded Confirmed Type amiodarone 100 mg PO DAILY 05/08/18 05/08/18 History armodafinil 200 mg PO QAM 05/08/18 05/08/18 History cyanocobalamin (vitamin B-12) 1 ml IM MONTHLY 05/08/18 05/08/18 History diltiazem HCl 120 mg PO QPM 05/08/18 05/08/18 History diltiazem HCl 240 mg PO QAM 05/08/18 05/08/18 History furosemide 60 mg PO QAM 05/08/18 05/08/18 History glimepiride 1 mg PO BID PRN 05/08/18 05/08/18 History insulin glargine [Basaglar KwikPen 10 unit SUBCUT HS PRN 05/08/18 05/08/18 History U-100 Insulin] levothyroxine 150 mcg PO DAILY 05/08/18 05/08/18 History pantoprazole 20 mg PO DAILY 05/08/18 05/08/18 History potassium chloride 20 meq PO TID 05/08/18 05/08/18 History pravastatin 10 mg PO HS 05/08/18 05/08/18 History sertraline 50 mg PO DAILY 05/08/18 05/08/18 History warfarin [Jantoven] 2.5 mg PO WK 05/08/18 05/08/18 History warfarin [Jantoven] 5 mg PO [id number] 05/08/18 05/08/18 History Allergies Allergy/AdvReac Type Severity Reaction Status Date / Time celecoxib Allergy Severe HIVES Verified 05/08/18 20:24 mivacurium Allergy Severe WHEEZES Verified 05/08/18 20:24 metoprolol AdvReac Mild DIZZINESS Verified 05/08/18 20:24 Past Med/Surg History Medical History Atrial fibrillation (Chronic) Diabetes (Chronic) Fatty liver (Chronic) Non-alcoholic cirrhosis (Chronic) Chronic diastolic CHF (congestive heart failure) Dyslipidemia Hypertension UTI (urinary tract infection) Warfarin anticoagulation Family History Other Family history non-contributory Social History marital status: Current Living Situation: Spouse Feels Safe at Home: Yes Safety Concerns: Feels Safe At This Time Smoking Status: Never smoker Hx Alcohol Use: No Hx Substance Use: No Beliefs That Will Affect Care: None Communication Ability: Effective Review of Systems See HPI for pertinent positives & negatives. and A total of 10 systems reviewed and were otherwise negative Physical Exam Vital Signs Vital Signs - 24 hr 05/09/18 07:00 05/09/18 13:14 05/09/18 14:35 Temperature 36.9 C Temperature Source Oral Pulse Rate [Right Finger] 70 Respiratory Rate 18 Respiratory Effort / Characteristics Non-Labored Spontaneous SOB on Exertion Respiratory Depth Normal Respiratory Pattern Regular Blood Pressure - Sitting 182/79 H Blood Pressure [Right Arm] 172/83 H Blood Pressure Mean [Right Arm] 112 Blood Pressure Position [Right Arm] Lying Pulse Oximetry 92 Pulse Oximetry [Start of Treatment] 93 Oxygen Delivery Method Room Air Room Air Oxygen Flow Rate [Start of Treatment] 0 05/09/18 15:33 05/09/18 15:45 05/09/18 16:16 Temperature 36.6 C 36.6 C 36.9 C Temperature Source Oral Oral Oral Pulse Rate [Right Finger] 70 63 65 Respiratory Rate 18 20 18 Respiratory Effort / Characteristics Respiratory Depth Respiratory Pattern Blood Pressure - Sitting Blood Pressure [Right Arm] 162/70 H 145/62 H 172/71 H Blood Pressure Mean [Right Arm] 100 89 104 Blood Pressure Position [Right Arm] Lying Pulse Oximetry 94 95 95 Pulse Oximetry [Start of Treatment] Oxygen Delivery Method Room Air Room Air Oxygen Flow Rate [Start of Treatment] 05/09/18 16:54 05/09/18 17:23 05/09/18 17:53 Temperature 36.7 C 36.9 C 36.5 C Temperature Source Oral Oral Oral Pulse Rate [Right Finger] 64 68 65 Respiratory Rate 18 18 20 Respiratory Effort / Characteristics Respiratory Depth Respiratory Pattern Blood Pressure - Sitting Blood Pressure [Right Arm] 170/75 H 182/73 H 185/95 H Blood Pressure Mean [Right Arm] 106 109 125 Blood Pressure Position [Right Arm] Pulse Oximetry 95 95 95 Pulse Oximetry [Start of Treatment] Oxygen Delivery Method Room Air Room Air Room Air Oxygen Flow Rate [Start of Treatment] 05/09/18 18:04 05/10/18 00:00 Temperature Temperature Source Pulse Rate [Right Finger] Respiratory Rate Respiratory Effort / Characteristics Non-Labored Non-Labored SOB on Exertion Respiratory Depth Normal Normal Respiratory Pattern Regular Regular Blood Pressure - Sitting Blood Pressure [Right Arm] Blood Pressure Mean [Right Arm] Blood Pressure Position [Right Arm] Pulse Oximetry Pulse Oximetry [Start of Treatment] Oxygen Delivery Method Room Air Room Air Oxygen Flow Rate [Start of Treatment] Vital signs reviewed. General: Chronically ill-appearing female, in no significant distress. Morbidly obese. HEENT: No scleral icterus, PERRLA, neck supple. Atraumatic. Cardiovascular: Regular rate and rhythm, no extra sounds. Pulmonary: Crackles at the base of lungs bilaterally, normal work of breathing. Abdomen: Soft, nontender, positive bowel sounds. Distended, dull to percussion. Musculoskeletal: Atraumatic, no peripheral edema. Neurologic: Patient awake alert and oriented x 3, equal strength in all 4 extremities while lying. Limited by abdominal girth. No focal weakness, facial muscles are symmetric Skin: Warm, dry, no rash Course 1705: Past medical records reviewed. The patient was evaluated in room C09, and a complete history and physical examination were performed. 6: I checked on the patient. 2102: I spoke with Dr. Nicholas, [facility] hospitalist, about the patient's case. He will further evaluate the patient. Consultations Consultation #1: I spoke with Dr. Nicholas, [facility] hospitalist, about the patient's case. He will further evaluate the patient. Time: 21:03 Administered Medications Amiodarone HCl (Cordarone) 100 mg PO DAILY CORAL Stop: 06/08/18 08:59 Last Admin: 05/09/18 08:44 Dose: 100 mg Diltiazem HCl (Cardizem Cd) 120 mg PO QPM CORAL Stop: 06/08/18 20:59 Last Admin: 05/09/18 21:18 Dose: 120 mg Diltiazem HCl (Cardizem Cd) 240 mg PO QAM CORAL Stop: 06/08/18 08:59 Last Admin: 05/09/18 08:44 Dose: 240 mg Furosemide 40 mg/ Syringe 4 mls @ 4 mls/min IV BID CORAL Stop: 06/08/18 08:59 Last Admin: 05/09/18 21:19 Dose: 4 mls/min Admin: 05/09/18 08:44 Dose: 4 mls/min Insulin Aspart (Novolog Flexpen) 0 units SC ACHS [facility] Stop: 06/08/18 07:29 Last Admin: 05/09/18 21:26 Dose: Not Given Admin: 05/09/18 18:21 Dose: 2 units Admin: 05/09/18 13:17 Dose: 4 units Admin: 05/09/18 08:54 Dose: Not Given Ioversol (Optiray 320 100ml) 100 ml IV ONCE PRN PRN Reason: Interaction Checking Stop: 05/13/18 02:09 Last Admin: 05/09/18 02:10 Dose: 92 ml Levothyroxine Sodium (Synthroid) 150 mcg PO DAILYBB [facility] Stop: 06/08/18 06:29 Last Admin: 05/09/18 06:02 Dose: 150 mcg Lisinopril (Zestril) 5 mg PO QAM CORAL Stop: 06/08/18 08:59 Last Admin: 05/09/18 08:44 Dose: 5 mg Magnesium Oxide (Mag-Ox) 400 mg PO BID [facility] Stop: 06/08/18 09:14 Last Admin: 05/09/18 21:18 Dose: 400 mg Admin: 05/09/18 10:11 Dose: 400 mg Pantoprazole Sodium (Protonix) 40 mg PO DAILY CORAL Stop: 06/08/18 08:59 Last Admin: 05/09/18 08:44 Dose: 40 mg Potassium Chloride (Klor-Con M20) 20 meq PO TIDM CORAL Stop: 06/08/18 07:59 Last Admin: 05/09/18 18:20 Dose: 20 meq Admin: 05/09/18 13:14 Dose: 20 meq Admin: 05/09/18 08:43 Dose: 20 meq Pravastatin Sodium (Pravachol) 10 mg PO HS [facility] Stop: 06/08/18 20:59 Last Admin: 05/09/18 21:18 Dose: 10 mg Rifaximin (Xifaxan) 550 mg PO BID CORAL Stop: 06/08/18 10:14 Last Admin: 05/09/18 21:26 Dose: Not Given Admin: 05/09/18 10:45 Dose: 550 mg Sertraline HCl (Zoloft) 50 mg PO DAILY CORAL Stop: 06/08/18 08:59 Last Admin: 05/09/18 08:44 Dose: 50 mg Spironolactone (Aldactone) 25 mg PO BIDM [facility] Stop: 06/08/18 07:59 Last Admin: 05/09/18 18:20 Dose: 25 mg Admin: 05/09/18 08:43 Dose: 25 mg Discontinued Medications Perflutren Lipid Microsphere (Definity) 2 ml IV ONCE ONE Stop: 05/09/18 09:18 Last Admin: 05/09/18 09:17 Dose: 2 ml Potassium Chloride (Klor-Con M20) 40 meq PO NOW STA Stop: 05/09/18 08:29 Last Admin: 05/09/18 10:11 Dose: 40 meq Medical Decision Making Differential Diagnosis Differential includes encephalopathy, liver disease, acute coronary syndrome, myocardial infarction, CVA, TIA, anemia, infection, pneumonia, UTI, pyelonephritis, poor nutrition, dehydration, electrolyte disturbance, hypoglycemia. Medical Records Attestation: I reviewed the patient's medical records. Home Medications Current Medication List: was personally reviewed by me Laboratory Data Attestation: I reviewed the patient's lab results. Result diagrams: 05/09/18 05:45 05/09/18 08:49 Lab Results 05/08/18 05/08/18 05/08/18 Range/Units 17:35 17:35 17:35 WBC 7.79 (4.8-10.8) K/uL RBC 4.36 (4.2-5.4) M/uL Hgb 11.3 L (12.0-16.0) g/dL Hct 36.3 L (37-47) % MCV 83.3 (80-100) fL MCH 25.9 (25-34) pg MCHC 31.1 L (32-36) g/dL RDW Std Deviation 51.4 H (36.4-46.3) fL RDW Coeff of Mynor 16.8 H (11.5-14.5) % Plt Count 247 (130-400) K/uL MPV 10.9 H (7.4-10.4) fL Immature Gran % (Auto) 0.3 % Neut % (Auto) 82.8 % Lymph % (Auto) 9.2 % [place] % (Auto) 6.9 % Eos % (Auto) 0.5 % Baso % (Auto) 0.3 % Immature Gran # (Auto) 0.02 (0.00-0.02) K/uL Neut # (Auto) 6.45 (1.4-6.5) K/uL Lymph # (Auto) 0.72 L (1.2-3.4) K/uL [place] # (Auto) 0.54 (0.11-0.59) K/uL Eos # (Auto) 0.04 (0-0.5) K/uL Baso # (Auto) 0.02 (0-0.2) K/uL ESR (0-21) mm/hr PT Cancelled INR Cancelled APTT (21.0-31.0) Seconds PTT Ratio Sodium 141 (136-145) mmol/L Potassium 3.3 L (3.5-5.1) mmol/L Chloride 107 (98-107) mmol/L Carbon Dioxide 22 (21-32) mmol/L Anion Gap 12.0 H (3-11) BUN 16 (7-18) mg/dl Creatinine 1.15 (0.6-1.2) mg/dl Est Cr Clr Drug Dosing Not Reportable Est GFR ( Amer) 55.0 Est GFR (Non-Af Amer) 47.5 BUN/Creatinine Ratio 13.5 (10-20) Glucose 180 H (70-99) mg/dl POC Glucose (70-99) Estimat Average Glucose mg/dl Hemoglobin A1c (4.5-5.6) % Calcium 8.7 (8.5-10.1) mg/dl Magnesium 1.9 (1.8-2.4) mg/dl Total Bilirubin 0.9 (0.2-1) mg/dl AST 60 H (15-37) U/L ALT 28 (12-78) U/L Alkaline Phosphatase 147 H (45-117) U/L Ammonia (11-32) umol/L Troponin I < 0.015 (0-0.045) ng/ml Total Protein 7.8 (6.4-8.2) gm/dl Albumin 3.0 L (3.4-5.0) gm/dl Globulin 4.8 H (2.5-4.0) gm/dl Albumin/Globulin Ratio 0.6 L (0.9-2) Vitamin B12 (211-911) pg/ml TSH 3.160 (0.300-4.500) uIu/ml Urine Color Urine Appearance (Clear) Urine pH (4.5-7.5) Ur Specific [place] (1.000-1.030) Urine Protein (Negative) Urine Glucose (UA) (Negative) Urine Ketones (Negative) Urine Blood (Negative) Urine Nitrite (Negative) Urine Bilirubin (Negative) Urine Urobilinogen (Negative) Ur Leukocyte Esterase (Negative) Peritoneal Color Peritoneal Appearance Peritoneal WBC (0-300) /ul Peritoneal RBC /uL Mononuclear WBCs % % Polynuclear WBCs % % Peritoneal Tot Protein g/dl Peritoneal Albumin g/dl Peritoneal LDH IU 05/08/18 05/08/18 05/08/18 Range/Units 17:35 17:35 17:35 WBC (4.8-10.8) K/uL RBC (4.2-5.4) M/uL Hgb (12.0-16.0) g/dL Hct (37-47) % MCV (80-100) fL MCH (25-34) pg MCHC (32-36) g/dL RDW Std Deviation (36.4-46.3) fL RDW Coeff of Mynor (11.5-14.5) % Plt Count (130-400) K/uL MPV (7.4-10.4) fL Immature Gran % (Auto) % Neut % (Auto) % Lymph % (Auto) % [place] % (Auto) % Eos % (Auto) % Baso % (Auto) % Immature Gran # (Auto) (0.00-0.02) K/uL Neut # (Auto) (1.4-6.5) K/uL Lymph # (Auto) (1.2-3.4) K/uL [place] # (Auto) (0.11-0.59) K/uL Eos # (Auto) (0-0.5) K/uL Baso # (Auto) (0-0.2) K/uL ESR 63 H (0-21) mm/hr PT INR APTT (21.0-31.0) Seconds PTT Ratio Sodium (136-145) mmol/L Potassium (3.5-5.1) mmol/L Chloride (98-107) mmol/L Carbon Dioxide (21-32) mmol/L Anion Gap (3-11) BUN (7-18) mg/dl Creatinine (0.6-1.2) mg/dl Est Cr Clr Drug Dosing Est GFR ( Amer) Est GFR (Non-Af Amer) BUN/Creatinine Ratio (10-20) Glucose (70-99) mg/dl POC Glucose (70-99) Estimat Average Glucose 137 mg/dl Hemoglobin A1c 6.4 H (4.5-5.6) % Calcium (8.5-10.1) mg/dl Magnesium (1.8-2.4) mg/dl Total Bilirubin (0.2-1) mg/dl AST (15-37) U/L ALT (12-78) U/L Alkaline Phosphatase (45-117) U/L Ammonia 32.4 H (11-32) umol/L Troponin I (0-0.045) ng/ml Total Protein (6.4-8.2) gm/dl Albumin (3.4-5.0) gm/dl Globulin (2.5-4.0) gm/dl Albumin/Globulin Ratio (0.9-2) Vitamin B12 (211-911) pg/ml TSH (0.300-4.500) uIu/ml Urine Color Urine Appearance (Clear) Urine pH (4.5-7.5) Ur Specific [place] (1.000-1.030) Urine Protein (Negative) Urine Glucose (UA) (Negative) Urine Ketones (Negative) Urine Blood (Negative) Urine Nitrite (Negative) Urine Bilirubin (Negative) Urine Urobilinogen (Negative) Ur Leukocyte Esterase (Negative) Peritoneal Color Peritoneal Appearance Peritoneal WBC (0-300) /ul Peritoneal RBC /uL Mononuclear WBCs % % Polynuclear WBCs % % Peritoneal Tot Protein g/dl Peritoneal Albumin g/dl Peritoneal LDH IU 05/08/18 05/08/18 05/08/18 Range/Units 17:47 19:25 19:28 WBC (4.8-10.8) K/uL RBC (4.2-5.4) M/uL Hgb (12.0-16.0) g/dL Hct (37-47) % MCV (80-100) fL MCH (25-34) pg MCHC (32-36) g/dL RDW Std Deviation (36.4-46.3) fL RDW Coeff of Mynor (11.5-14.5) % Plt Count (130-400) K/uL MPV (7.4-10.4) fL Immature Gran % (Auto) % Neut % (Auto) % Lymph % (Auto) % [place] % (Auto) % Eos % (Auto) % Baso % (Auto) % Immature Gran # (Auto) (0.00-0.02) K/uL Neut # (Auto) (1.4-6.5) K/uL Lymph # (Auto) (1.2-3.4) K/uL [place] # (Auto) (0.11-0.59) K/uL Eos # (Auto) (0-0.5) K/uL Baso # (Auto) (0-0.2) K/uL ESR (0-21) mm/hr PT 22.7 H INR 2.4 H APTT 33.7 H (21.0-31.0) Seconds PTT Ratio 1.3 Sodium (136-145) mmol/L Potassium (3.5-5.1) mmol/L Chloride (98-107) mmol/L Carbon Dioxide (21-32) mmol/L Anion Gap (3-11) BUN (7-18) mg/dl Creatinine (0.6-1.2) mg/dl Est Cr Clr Drug Dosing Est GFR ( Amer) Est GFR (Non-Af Amer) BUN/Creatinine Ratio (10-20) Glucose (70-99) mg/dl POC Glucose 165 H (70-99) Estimat Average Glucose mg/dl Hemoglobin A1c (4.5-5.6) % Calcium (8.5-10.1) mg/dl Magnesium (1.8-2.4) mg/dl Total Bilirubin (0.2-1) mg/dl AST (15-37) U/L ALT (12-78) U/L Alkaline Phosphatase (45-117) U/L Ammonia (11-32) umol/L Troponin I (0-0.045) ng/ml Total Protein (6.4-8.2) gm/dl Albumin (3.4-5.0) gm/dl Globulin (2.5-4.0) gm/dl Albumin/Globulin Ratio (0.9-2) Vitamin B12 (211-911) pg/ml TSH (0.300-4.500) uIu/ml Urine Color Yellow Urine Appearance Clear (Clear) Urine pH 7.5 (4.5-7.5) Ur Specific [place] 1.012 (1.000-1.030) Urine Protein Negative (Negative) Urine Glucose (UA) Negative (Negative) Urine Ketones Negative (Negative) Urine Blood Negative (Negative) Urine Nitrite Negative (Negative) Urine Bilirubin Negative (Negative) Urine Urobilinogen Negative (Negative) Ur Leukocyte Esterase Negative (Negative) Peritoneal Color Peritoneal Appearance Peritoneal WBC (0-300) /ul Peritoneal RBC /uL Mononuclear WBCs % % Polynuclear WBCs % % Peritoneal Tot Protein g/dl Peritoneal Albumin g/dl Peritoneal LDH IU 05/08/18 05/09/18 05/09/18 Range/Units 21:19 05:45 05:45 WBC 8.14 (4.8-10.8) K/uL RBC 4.20 (4.2-5.4) M/uL Hgb 10.9 L (12.0-16.0) g/dL Hct 34.9 L (37-47) % MCV 83.1 (80-100) fL MCH 26.0 (25-34) pg MCHC 31.2 L (32-36) g/dL RDW Std Deviation 51.6 H (36.4-46.3) fL RDW Coeff of Mynor 16.9 H (11.5-14.5) % Plt Count 261 (130-400) K/uL MPV 11.0 H (7.4-10.4) fL Immature Gran % (Auto) 0.4 % Neut % (Auto) 70.2 % Lymph % (Auto) 16.5 % [place] % (Auto) 10.3 % Eos % (Auto) 2.1 % Baso % (Auto) 0.5 % Immature Gran # (Auto) 0.03 H (0.00-0.02) K/uL Neut # (Auto) 5.72 (1.4-6.5) K/uL Lymph # (Auto) 1.34 (1.2-3.4) K/uL [place] # (Auto) 0.84 H (0.11-0.59) K/uL Eos # (Auto) 0.17 (0-0.5) K/uL Baso # (Auto) 0.04 (0-0.2) K/uL ESR (0-21) mm/hr PT Cancelled INR Cancelled APTT (21.0-31.0) Seconds PTT Ratio Sodium (136-145) mmol/L Potassium (3.5-5.1) mmol/L Chloride (98-107) mmol/L Carbon Dioxide (21-32) mmol/L Anion Gap (3-11) BUN (7-18) mg/dl Creatinine (0.6-1.2) mg/dl Est Cr Clr Drug Dosing Est GFR ( Amer) Est GFR (Non-Af Amer) BUN/Creatinine Ratio (10-20) Glucose (70-99) mg/dl POC Glucose 148 H (70-99) Estimat Average Glucose mg/dl Hemoglobin A1c (4.5-5.6) % Calcium (8.5-10.1) mg/dl Magnesium (1.8-2.4) mg/dl Total Bilirubin (0.2-1) mg/dl AST (15-37) U/L ALT (12-78) U/L Alkaline Phosphatase (45-117) U/L Ammonia (11-32) umol/L Troponin I (0-0.045) ng/ml Total Protein (6.4-8.2) gm/dl Albumin (3.4-5.0) gm/dl Globulin (2.5-4.0) gm/dl Albumin/Globulin Ratio (0.9-2) Vitamin B12 (211-911) pg/ml TSH (0.300-4.500) uIu/ml Urine Color Urine Appearance (Clear) Urine pH (4.5-7.5) Ur Specific [place] (1.000-1.030) Urine Protein (Negative) Urine Glucose (UA) (Negative) Urine Ketones (Negative) Urine Blood (Negative) Urine Nitrite (Negative) Urine Bilirubin (Negative) Urine Urobilinogen (Negative) Ur Leukocyte Esterase (Negative) Peritoneal Color Peritoneal Appearance Peritoneal WBC (0-300) /ul Peritoneal RBC /uL Mononuclear WBCs % % Polynuclear WBCs % % Peritoneal Tot Protein g/dl Peritoneal Albumin g/dl Peritoneal LDH IU 05/09/18 05/09/18 05/09/18 Range/Units 06:23 07:47 08:49 WBC (4.8-10.8) K/uL RBC (4.2-5.4) M/uL Hgb (12.0-16.0) g/dL Hct (37-47) % MCV (80-100) fL MCH (25-34) pg MCHC (32-36) g/dL RDW Std Deviation (36.4-46.3) fL RDW Coeff of Mynor (11.5-14.5) % Plt Count (130-400) K/uL MPV (7.4-10.4) fL Immature Gran % (Auto) % Neut % (Auto) % Lymph % (Auto) % [place] % (Auto) % Eos % (Auto) % Baso % (Auto) % Immature Gran # (Auto) (0.00-0.02) K/uL Neut # (Auto) (1.4-6.5) K/uL Lymph # (Auto) (1.2-3.4) K/uL [place] # (Auto) (0.11-0.59) K/uL Eos # (Auto) (0-0.5) K/uL Baso # (Auto) (0-0.2) K/uL ESR (0-21) mm/hr PT 23.2 H INR 2.4 H APTT (21.0-31.0) Seconds PTT Ratio Sodium 139 (136-145) mmol/L Potassium 3.2 L (3.5-5.1) mmol/L Chloride 109 H (98-107) mmol/L Carbon Dioxide 24 (21-32) mmol/L Anion Gap 6.0 (3-11) BUN 13 (7-18) mg/dl Creatinine 1.07 (0.6-1.2) mg/dl Est Cr Clr Drug Dosing 52.0 Est GFR ( Amer) 60.1 Est GFR (Non-Af Amer) 51.8 BUN/Creatinine Ratio 12.1 (10-20) Glucose 167 H (70-99) mg/dl POC Glucose 82 (70-99) Estimat Average Glucose mg/dl Hemoglobin A1c (4.5-5.6) % Calcium 8.7 (8.5-10.1) mg/dl Magnesium (1.8-2.4) mg/dl Total Bilirubin 1.1 H (0.2-1) mg/dl AST 58 H (15-37) U/L ALT 26 (12-78) U/L Alkaline Phosphatase 136 H (45-117) U/L Ammonia (11-32) umol/L Troponin I (0-0.045) ng/ml Total Protein 7.1 (6.4-8.2) gm/dl Albumin 2.9 L (3.4-5.0) gm/dl Globulin 4.2 H (2.5-4.0) gm/dl Albumin/Globulin Ratio 0.7 L (0.9-2) Vitamin B12 (211-911) pg/ml TSH (0.300-4.500) uIu/ml Urine Color Urine Appearance (Clear) Urine pH (4.5-7.5) Ur Specific [place] (1.000-1.030) Urine Protein (Negative) Urine Glucose (UA) (Negative) Urine Ketones (Negative) Urine Blood (Negative) Urine Nitrite (Negative) Urine Bilirubin (Negative) Urine Urobilinogen (Negative) Ur Leukocyte Esterase (Negative) Peritoneal Color Peritoneal Appearance Peritoneal WBC (0-300) /ul Peritoneal RBC /uL Mononuclear WBCs % % Polynuclear WBCs % % Peritoneal Tot Protein g/dl Peritoneal Albumin g/dl Peritoneal LDH IU 05/09/18 05/09/18 05/09/18 Range/Units 11:36 17:05 17:21 WBC (4.8-10.8) K/uL RBC (4.2-5.4) M/uL Hgb (12.0-16.0) g/dL Hct (37-47) % MCV (80-100) fL MCH (25-34) pg MCHC (32-36) g/dL RDW Std Deviation (36.4-46.3) fL RDW Coeff of Mynor (11.5-14.5) % Plt Count (130-400) K/uL MPV (7.4-10.4) fL Immature Gran % (Auto) % Neut % (Auto) % Lymph % (Auto) % [place] % (Auto) % Eos % (Auto) % Baso % (Auto) % Immature Gran # (Auto) (0.00-0.02) K/uL Neut # (Auto) (1.4-6.5) K/uL Lymph # (Auto) (1.2-3.4) K/uL [place] # (Auto) (0.11-0.59) K/uL Eos # (Auto) (0-0.5) K/uL Baso # (Auto) (0-0.2) K/uL ESR (0-21) mm/hr PT INR APTT (21.0-31.0) Seconds PTT Ratio Sodium (136-145) mmol/L Potassium (3.5-5.1) mmol/L Chloride (98-107) mmol/L Carbon Dioxide (21-32) mmol/L Anion Gap (3-11) BUN (7-18) mg/dl Creatinine (0.6-1.2) mg/dl Est Cr Clr Drug Dosing Est GFR ( Amer) Est GFR (Non-Af Amer) BUN/Creatinine Ratio (10-20) Glucose (70-99) mg/dl POC Glucose 243 H 110 H (70-99) Estimat Average Glucose mg/dl Hemoglobin A1c (4.5-5.6) % Calcium (8.5-10.1) mg/dl Magnesium (1.8-2.4) mg/dl Total Bilirubin (0.2-1) mg/dl AST (15-37) U/L ALT (12-78) U/L Alkaline Phosphatase (45-117) U/L Ammonia (11-32) umol/L Troponin I (0-0.045) ng/ml Total Protein (6.4-8.2) gm/dl Albumin (3.4-5.0) gm/dl Globulin (2.5-4.0) gm/dl Albumin/Globulin Ratio (0.9-2) Vitamin B12 964 H (211-911) pg/ml TSH (0.300-4.500) uIu/ml Urine Color Urine Appearance (Clear) Urine pH (4.5-7.5) Ur Specific [place] (1.000-1.030) Urine Protein (Negative) Urine Glucose (UA) (Negative) Urine Ketones (Negative) Urine Blood (Negative) Urine Nitrite (Negative) Urine Bilirubin (Negative) Urine Urobilinogen (Negative) Ur Leukocyte Esterase (Negative) Peritoneal Color Peritoneal Appearance Peritoneal WBC (0-300) /ul Peritoneal RBC /uL Mononuclear WBCs % % Polynuclear WBCs % % Peritoneal Tot Protein g/dl Peritoneal Albumin g/dl Peritoneal LDH IU 05/09/18 05/09/18 Range/Units 20:25 Unknown WBC (4.8-10.8) K/uL RBC (4.2-5.4) M/uL Hgb (12.0-16.0) g/dL Hct (37-47) % MCV (80-100) fL MCH (25-34) pg MCHC (32-36) g/dL RDW Std Deviation (36.4-46.3) fL RDW Coeff of Myn[place] (11.5-14.5) % Plt Count (130-400) K/uL MPV (7.4-10.4) fL Immature Gran % (Auto) % Neut % (Auto) % Lymph % (Auto) % [place] % (Auto) % Eos % (Auto) % Baso % (Auto) % Immature Gran # (Auto) (0.00-0.02) K/uL Neut # (Auto) (1.4-6.5) K/uL Lymph # (Auto) (1.2-3.4) K/uL [place] # (Auto) (0.11-0.59) K/uL Eos # (Auto) (0-0.5) K/uL Baso # (Auto) (0-0.2) K/uL ESR (0-21) mm/hr PT INR APTT (21.0-31.0) Seconds PTT Ratio Sodium (136-145) mmol/L Potassium (3.5-5.1) mmol/L Chloride (98-107) mmol/L Carbon Dioxide (21-32) mmol/L Anion Gap (3-11) BUN (7-18) mg/dl Creatinine (0.6-1.2) mg/dl Est Cr Clr Drug Dosing Est GFR ( Amer) Est GFR (Non-Af Amer) BUN/Creatinine Ratio (10-20) Glucose (70-99) mg/dl POC Glucose 134 H (70-99) Estimat Average Glucose mg/dl Hemoglobin A1c (4.5-5.6) % Calcium (8.5-10.1) mg/dl Magnesium (1.8-2.4) mg/dl Total Bilirubin (0.2-1) mg/dl AST (15-37) U/L ALT (12-78) U/L Alkaline Phosphatase (45-117) U/L Ammonia (11-32) umol/L Troponin I (0-0.045) ng/ml Total Protein (6.4-8.2) gm/dl Albumin (3.4-5.0) gm/dl Globulin (2.5-4.0) gm/dl Albumin/Globulin Ratio (0.9-2) Vitamin B12 (211-911) pg/ml TSH (0.300-4.500) uIu/ml Urine Color Urine Appearance (Clear) Urine pH (4.5-7.5) Ur Specific [place] (1.000-1.030) Urine Protein (Negative) Urine Glucose (UA) (Negative) Urine Ketones (Negative) Urine Blood (Negative) Urine Nitrite (Negative) Urine Bilirubin (Negative) Urine Urobilinogen (Negative) Ur Leukocyte Esterase (Negative) Peritoneal Color YELLOW Peritoneal Appearance CLEAR Peritoneal WBC 273 (0-300) /ul Peritoneal RBC < 3000 /uL Mononuclear WBCs % 97.0 % Polynuclear WBCs % 3.0 % Peritoneal Tot Protein 2.7 g/dl Peritoneal Albumin 1.3 g/dl Peritoneal LDH 77 IU Imaging Data Radiologist's Impression: Radiology results as stated below per my review and the radiologist's interpretation: XR chest 1V portable CLINICAL HISTORY: weakness FLUID RETENTION COMPARISON STUDY: 07/22/2012 FINDINGS: The heart is enlarged. There is radiographic evidence of congestive failure with minor edema. There is no lobar consolidation. There are no significant pleural effusions.[ IMPRESSION: Cardiomegaly and radiographic evidence of congestive failure/fluid overload. Electronically signed by: Kael Nobles M.D. 05/08/2018 6:[address] head/brain wo con CLINICAL HISTORY: Acute change in mental status. COMPARISON STUDY: 07/22/2012 TECHNIQUE: Axial CT of the brain is performed from the vertex to the skull base. IV contrast was not administered for this examination. A dose lowering technique was utilized adhering to the principles of ALARA. CT DOSE: 537.48 mGy.cm FINDINGS: No intra or extra-axial mass lesions are visualized. There is no CT evidence of acute cortical infarction. There is no evidence of midline shift. There is no acute hemorrhage. No calvarial fractures are visualized. There are minimal white matter hypodensities likely on a small vessel basis. There is no evidence of pathologic ventricular dilatation. There is no evidence of acute sinusitis. The patient is status post right orbital banding. IMPRESSION: No acute intracranial findings Electronically signed by: Kael Nobles M.D. 05/08/2018 6:03 PM BILIARY ULTRASOUND CLINICAL HISTORY: Right upper quadrant abdominal pain. Cirrhosis. Possible ascites. COMPARISON STUDY: 11/07/2017 FINDINGS: The pancreas was nonvisualized. The liver has a cirrhotic morphology. No hepatic masses were visualized. The liver was mildly enlarged. The main portal vein waveform is abnormal suggestive of portal hypertension or nonocclusive thrombus. The gallbladder surgically absent. The common bile duct measures 7 mm. There is no right-sided hydronephrosis. There is low volume ascites within the upper abdomen. IMPRESSION: 1. Cirrhotic morphology of the liver 2. Low volume ascites within the upper abdomen 3. Abnormal portal vein waveform, consistent with either significant portal hypertension, or nonocclusive thrombus 4. Nondiagnostic evaluation the pancreas Electronically signed by: Kael Nobles M.D. 05/08/2018 8:06 PM ECG Data Attestation: I personally reviewed and interpreted this ECG as follows: Indication: weakness Rate (beats per minute): 66 Rhythm: normal sinus Findings: + other (QTc 526) and + prolonged QT; no ectopy Blood Pressure Blood Pressure Findings: Elevated blood pressure MDM Narrative This pt was evaluated and appeared to be chronically ill, deconditioned. IV access was performed and lab work was drawn. US abd was performed, ? qty ascites. Pt is anitcoagulated on warfarin, however non occlusive thrombus vs portal HTN seen, along with some ascites on US. CT head is negative, UA is negtive. Family describes a complete inability to ambulate, care for self. She is sleeping the majority of the day. Lab work is reassuring, I do suspect the pt has acute on chronic dysfunction and will require PT/OT eval with likely rehab care. Pt was d/w [facility] hospitalist service for further management. Impression & Plan Cirrhosis of liver, Ambulatory dysfunction, Frequent falls, Weakness of both lower extremities Discharge Plan Visit Data *Final* Discharge Date/Time: 05/09/18 01:06 Chief Complaint: Illness Stated Complaint: ILLNESS ED Provider: Catherine Elam Discharge Problem: Cirrhosis of liver, Ambulatory dysfunction, Frequent falls, Weakness of both lower extremities Patient Disposition: Admitted As Inpatient Discharge Instructions Interventions: ED Discharge Assessment Last Done: 05/09/18 01:06 The scribe's documentation has been prepared under my direction and personally reviewed by me in its entirety. I confirm that the note above accurately reflects all work, treatment, procedures, and medical decision making performed by me.
[2018-05-08 20:07] LABS: INR 2.4 (0.9-1.1); Partial Thromboplastin Ratio 1.3; Partial Thromboplastin Time 33.7 Seconds (21.0-31.0); Prothrombin Time 22.7 Seconds (9.0-12.0)
--- NOTE | 2018-05-08 20:08 | Ultrasound Report ---
BILIARY ULTRASOUND CLINICAL HISTORY: Right upper quadrant abdominal pain. Cirrhosis. Possible ascites. COMPARISON STUDY: 11/07/2017 FINDINGS: The pancreas was nonvisualized. The liver has a cirrhotic morphology. No hepatic masses wer e visualized. The liver was mildly enlarged. The main portal vein waveform is abnormal suggestive of portal hypertension or nonocclusive thrombus. The gallbladder surgically absent. The common bile duct measures 7 mm. There is no right-sided hydronephrosis. There is low volume ascites within the upper abdomen. IMPRESSION: 1. Cirrhotic morphology of the liver 2. Low volume ascites within the upper abdomen 3. Abnormal portal vein waveform, consistent with either significant portal hypertension, or nonocclu sive thrombus 4. Nondiagnostic evaluation the pancreas Electronically signed by: Kael Nobles M.D. 05/08/2018 8:06 PM
--- NOTE | 2018-05-08 21:47 | History & Physical Report ---
Date of Service May 08, 2018 Assessment & Plan (1) Cirrhosis of liver: Janneth Watson is a 72 y.o female with history of A-fib, heart failure, Liver cirrhosis, HTN, Diabetes and MELYSSA who presents to the ED today with complaint that she can't walk being admitted for further evaluation and management of cirrhosis and fatigue. 1. Cirrhosis -Non alcoholic fatty liver disease -Recent diagnosis in 2018 without complete evaluation -Dr. Gonzalez has followed the patient and performed EGD/Colonoscopy in 2018 which showed gastric varices -Concern for worsening of cirrhosis based on clinical exam and history; fatigue may be the manifestation of worsened cirrhosis -CT abdomen/pelvis compared to prior CT on 04/18/14 showed varices along spleen/ stomach, extensive ascites, no free air or pneumatosis or portal venous gas. overlying subcutaneous edema. -Abd US: cirrhotic morphology of liver, low volume ascites within the upper abdomen, abnormal portal vein waveform consistent with either significant portal htn or nonocclusive thrombus -If thrombus present pt is at a therapeutic dose of Warfarin -Ammonia level of 32, AST/ALT 60/28. Albumin 3.0, INR 2.4 -ESR elevation suggesting inflammatory reaction -Continue Lasix as IV, 40mg BID, spironolactone 25mg BID added for K+sparing diuresis, consider adding beta luís -Due to large volume ascites she may needed thoracentesis. Dr. Gonzalez consulted for further recommendations. -She is being admitted to med/surg with tele for further management. 2. Ambulatory Dysfunction -Acute in nature with patient stating that legs will give out if she were to walk -Unclear etiology: may be secondary to cirrhosis vs deconditioning -CT head: no evidence of pathologic ventricular dilatation, no acute hemorrhage , no midline shift, no mass lesion -Will order PT/OT and pt plans to go to inpt rehab with [facility] 3. A-fib -EKG with normal sinus rhythm and prolonged QT of 502ms -Avoid QT prolonging medications -Will monitor on Tele -Continue Amiodarone, Diltiazem, Warfarin -Warfarin therapeutic with INR of 2.4 4. Heart failure -Prior hospitalization in 2018 -No acute exacerbation -Unclear of last ECHO; ECHO pending -Follows with [facility], consult placed, concern of possible cardiomyopathy causing volume overload/fatigue 5. Diabetes - On insulin 10U and Glimepride at home -Prior A1c of 6.0 on 04/20/18 -Will hold home dosage and start with accuchecks AC/HS with SSI 6. HTN -elevated pressure 180-190s/80s -Did not take Lisinopril on 05/08 -Medication given, 5mg, continue to monitor and adjust regimen if needed 7. GERD -Continue Protonix 8. Depression -Continue Sertraline 9. HLD - Continue Statin 10. Hypokalemia -Secondary to Lasix -K+ of 3.3 -replace with home PO potassium FEN/GI Fluids: None Electrolytes: Monitor and replace Nutrition: Heart healthy, diabetic diet Activity: Bed rest GI PPx: Protonix DVT PPX: Warfarin Code: Full Code Dispo: Inpatient admission. Dispo to rehab facility. (2) Ambulatory dysfunction: (3) Heart failure: History of Present Illness Chief Complaint: "I couldn't walk." Primary Care Provider: Pilar Robertson MD Janneth Watson is a 72 y.o female with history of A-fib, heart failure, Liver cirrhosis, RATLIFF, HTN, Diabetes and MELYSSA who presents to the ED today with complaint that she can't walk. History per patient. Daughter, , and son- in-law in the room with the patient. Today she needed assistance with walking to the bathroom and had a fall during the process. "My legs gave out on me." Denies dizziness/lightheadedness prior to the fall. Her called EMS and she was brought to the ED. States that for the past 2 month Janneth has been sleeping excessively at least 15 hours per day. Ms. Watson states that she is exhausted all of the time and finds herself falling asleep at 5pm each evening and awakens at 11am the next morning. CPAP was checked per PCP Dr. Robertson and found to be working well. She was prescribed Armodafinil to assist with drowsiness but it has not been helpful. She also has chronic incontinence of bowel/bladder reportedly because she is unable to get to the bathroom in time. Daughter reports that excessive fatigue is not normal for her mother. Reports that she is not able In addition her abdomen has become larger throughout the past 2 months. Per Mrs. Watson's daughter she was diagnosed with Cirrhosis in the summer after an EGD and Colonoscopy was performed. PMHx: 1. A-fib 2. heart failure 3. Cirrhosis/RATLIFF 4. HTN 5. Diabetes 6. MELYSSA 7. Depression Surgical history: Hysterectomy Oophorectomy Cholecystectomy Social History: Lives with . Denies alcohol, drugs, or tobacco use. Allergies Allergy/AdvReac Type Severity Reaction Status Date / Time celecoxib Allergy Severe HIVES Verified 05/08/18 20:24 mivacurium Allergy Severe WHEEZES Verified 05/08/18 20:24 metoprolol AdvReac Mild DIZZINESS Verified 05/08/18 20:24 Home Medications Home Medications Medication Instructions Recorded Confirmed Type amiodarone 100 mg PO DAILY 05/08/18 05/08/18 History armodafinil 200 mg PO QAM 05/08/18 05/08/18 History cyanocobalamin (vitamin B-12) 1 ml IM MONTHLY 05/08/18 05/08/18 History diltiazem HCl 120 mg PO QPM 05/08/18 05/08/18 History diltiazem HCl 240 mg PO QAM 05/08/18 05/08/18 History furosemide 60 mg PO QAM 05/08/18 05/08/18 History glimepiride 1 mg PO BID PRN 05/08/18 05/08/18 History insulin glargine [Basaglar KwikPen 10 unit SUBCUT HS PRN 05/08/18 05/08/18 History U-100 Insulin] levothyroxine 150 mcg PO DAILY 05/08/18 05/08/18 History pantoprazole 20 mg PO DAILY 05/08/18 05/08/18 History potassium chloride 20 meq PO TID 05/08/18 05/08/18 History pravastatin 10 mg PO HS 05/08/18 05/08/18 History sertraline 50 mg PO DAILY 05/08/18 05/08/18 History warfarin [Jantoven] 2.5 mg PO WK 05/08/18 05/08/18 History warfarin [Jantoven] 5 mg PO 6XWK 05/08/18 05/08/18 History Past Med/Surg History Medical History Atrial fibrillation (Chronic) Diabetes (Chronic) Fatty liver (Chronic) Non-alcoholic cirrhosis (Chronic) Chronic diastolic CHF (congestive heart failure) Dyslipidemia Hypertension UTI (urinary tract infection) Warfarin anticoagulation Family History Other Family history non-contributory Social History marital status: Current Living Situation: Spouse Feels Safe at Home: Yes Safety Concerns: Feels Safe At This Time Smoking Status: Never smoker Hx Alcohol Use: No Hx Substance Use: No Beliefs That Will Affect Care: None Communication Ability: Effective Review of Systems Constitutional: + fatigue and + weight gain; no fever, no chills and no weakness Eyes: no discharge Ear, Nose, Mouth, Throat: no nasal congestion, no nasal discharge and no nasal obstruction Respiratory: no cough, no chest congestion and no snoring Cardiovascular: no chest pain, no dyspnea, no lightheadedness and no syncope Gastrointestinal: + fecal incontinence; no abdominal pain, no heartburn, no vomiting, no constipation and no diarrhea/loose stools Genitourinary (Female): + urinary incontinence; no dysuria Musculoskeletal: no back pain, no neck pain and no joint pain Integumentary: no rash and no lesions Neurologic: no tingling, no numbness and no dizziness Psychiatric: no behavioral changes Physical Exam 2 Vital Signs (Past 24 Hours): Last Vital Signs Temp 36.4 C L 05/08/18 17:10 Pulse 67 05/08/18 21:21 Resp 24 05/08/18 21:21 BP 181/86 H 05/08/18 21:21 Pulse Ox 94 05/08/18 21:21 Constitutional: well developed, + ill appearing, + morbidly obese and cooperative; no acute distress and not intoxicated appearing Eyes: PERRL, conjunctivae normal, anicteric sclerae EOM intact bilaterally ENMT: external ear and nose normal, oropharynx normal unable to visualize uvula mouth small Neck: large neck, supple negative LAD Respiratory: + labored breathing; no respiratory distress and does not use accessory muscles Auscultation: + crackles; no rales, no rhonchi and no wheezes Shallow breaths Diminished breath sounds on the right lower base Cardiovascular: RRR, no murmur, no edema Heart Sounds: normal S1 and normal S2 Extremities: + edema (1+ bilateral lower extremity) Gastrointestinal (Abdomen): Inspection/Auscultation: + abdomen distended Percussion/Palpation: + ascites; no fluid wave Abdomen firm and largely distended Bowel sounds diminished Abdomen nttp Musculoskeletal: no cyanosis or clubbing, extremities motor strength 5/5 Skin: no rashes, warm and dry normal capillary refill Neurologic: PERRL, EOMI, accommodation nl, no face palsy, no dysarthria CN' s II-XI intact bilaterally Psychiatric: A+Ox3, euthymic affect drowsy during exam Results & Data Laboratory Results H/H: 11.3/36.3 ESR: 63 INR 2.4 K+ 3.3 Ammonia 32.4 UA negative Diagnostic Findings CXR: Cardiomegaly and radiographic evidence of congestive failure/fluid overload. Head CT: No intra or extra-axial mass lesions are visualized. There is no CT evidence of acute cortical infarction. There is no evidence of midline shift. There is no acute hemorrhage. No calvarial fractures are visualized. There are minimal white matter hypodensities likely on a small vessel basis. There is no evidence of pathologic ventricular dilatation. There is no evidence of acute sinusitis. The patient is status post right orbital banding. Abdominal US: 1. Cirrhotic morphology of the liver 2. Low volume ascites within the upper abdomen 3. Abnormal portal vein waveform, consistent with either significant portal hypertension, or nonocclusive thrombus 4. Nondiagnostic evaluation the pancreas ECG Indication: other (history of afib, heart faillure) Rate (beats per minute): 66 Rhythm: normal sinus Findings: + prolonged QT (502ms) Code Status & VTE Plan Code Status Full VTE Prophylaxis Plan VTE Prophylaxis will be ordered: No Reason for no VTE drug order: Treatment not indicated (patient on warfarin) Supervising Physician Co-Signing Physician Notes Attending addendum: I have physically seen this patient, have supervised the medical residents activities, and agree with the H&P unless as otherwise noted. Assessment and Plan: Cirrhosis/nonalcoholic fatty liver disease/type I gastric varices/ascites/ question portal vein hypertension versus nonocclusive thrombus-- Previous CT on 04/18/14 showed varices along spleen and stomach, and with extensive ascites. She has been on Lasix 60 mg p.o. every morning, and potassium chloride 20 mEq p.o. 3 times daily. Placed on Lasix 40 mg IV twice daily, spelled lactone 25 mg p.o. twice daily and Potassium supplementation in half. Consult Dr. Gonzalez from gastroenterology, who performed her most recent EGD and colonoscopy in October 2017, for remainder workup. Generalized fatigue and ambulatory dysfunction is likely multifactorial: Cirrhosis with anasarca, atrial fibrillation, medication side effects, and CHF. Plans are ultimately to go to inpatient rehab at [facility] in [place]. Remainder of orders and notations as noted. _ (1) Cirrhosis of liver Ascites presence: Hepatic cirrhosis type: other cirrhosis Qualified Code(s) : K74.69 - Other cirrhosis of liver
[2018-05-09] MEDS ORDERED: GLUCOSE 10 TABS/TUBE PO PRN (01:27)
[2018-05-09] MEDS ORDERED: GLUCOSE 40% GEL 15 GM TUBE PO PRN (01:27)
[2018-05-09] MEDS ORDERED: ALUMINUM/MAGNESIUM SUSP 30 ML UDC PO PRN (01:27)
[2018-05-09] MEDS ORDERED: POLYETHYLENE (MIRALAX) 17 GM PACK PO PRN (01:27)
[2018-05-09] MEDS ORDERED: CONSULT PHARMACY STA (01:27)
[2018-05-09] MEDS ORDERED: ONDANSETRON INJ 2 MG/ML 2 ML VIAL IV PRN (01:27)
[2018-05-09] MEDS ORDERED: CARBOHYDRATES FOR HYPOGLYCEMIA PO PRN (01:27)
[2018-05-09] MEDS ORDERED: FUROSEMIDE 40 MG/4 ML VIAL IV STA (01:27)
[2018-05-09] MEDS ORDERED: GLIMEPIRIDE 2 MG TAB PO PRN (01:27)
[2018-05-09] MEDS ORDERED: GLUCAGON FOR INJ 1 MG VIAL SQ PRN (01:27)
[2018-05-09] MEDS ORDERED: MAGNESIUM HYDROXIDE SUSP 30 ML UDC PO PRN (01:27)
[2018-05-09] MEDS ORDERED: DEXTROSE 50% 50 ML SYRINGE IV PRN (01:27)
[2018-05-09] MEDS ORDERED: IOVERSOL 100ml IV PRN (02:10)
[2018-05-09] MEDS: LEVOTHYROXINE SODIUM 150 MCG TABLET PO SCH (06:02)
[2018-05-09 06:17] LABS: Estimated Average Glucose 137 mg/dl
[2018-05-09 06:50] LABS: INR 2.4 (0.9-1.1); Prothrombin Time 23.2 Seconds (9.0-12.0)
--- NOTE | 2018-05-09 07:10 | CT Scan Report ---
CT abd pelvis IV con only CLINICAL HISTORY: 72 years-old Female presenting with cirrhosis, ascites, portal vein eval. TECHNIQUE: Multidetector CT of the abdomen and pelvis was performed after the administration of intra venous contrast. IV contrast: 92 mL of Optiray 320. A dose lowering technique was used consistent wit h the principles of ALARA (as low as reasonably achievable). COMPARISON: Ultrasound performed the previous day. CT DOSE (mGy.cm): The estimated cumulative dose is 1387.54 mGy.cm. FINDINGS: Packaging Operator topogram: Unremarkable. Lung bases: Minimal dependent changes likely atelectasis. Multichamber enlargement of the heart. Trac e left pleural effusion. No pericardial effusion. Nonspecific pericardial lymph nodes. Liver: Macronodular contour of the liver with relative hypertrophy of the left hepatic lobe consisten t with cirrhosis. The single postcontrast phase limits evaluation for hepatic lesion. Allowing for th is, no gross evidence of a hepatic lesion. Patent hepatic vasculature, including the portal vein allo wing for suboptimal image quality secondary to patient body habitus. Biliary: Mild biliary ductal prominence likely a reservoir effect in the post cholecystectomy state. Gallbladder surgically absent. Pancreas: Moderate parenchymal atrophy. Spleen: Enlarged, measuring 15.1 cm in maximal sagittal dimension. Adrenal glands: Normal. Kidneys and ureters: Nonobstructing bilateral renal calculi measuring 4 mm on the right and 5 mm on t he left. Normal appearance of the renal parenchyma. No hydronephrosis. Mild nonspecific perinephric f at infiltration. Ureters nondistended. Bladder: Incompletely evaluated secondary to underdistention. Pelvic organs: Uterus surgically absent. No adnexal masses. Bowel: Suggestion of rectal descent. The appendix is not visualized. No bowel obstruction. Peritoneal cavity: Large volume simple appearing ascites. No peritoneal thickening or enhancement allie dent. No free intraperitoneal gas. Lymph nodes: No enlarged lymph nodes in the abdomen or pelvis. Vasculature: Atherosclerosis of the normal caliber abdominal aorta. IVC patent. Prominent varices in the region of the gastroesophageal junction as well as gastric varices at the fundus. Splenic varices . Periumbilical vein recanalization. Abdominal wall: Body wall edema. Fat and ascites containing periumbilical hernia. Nonspecific skin th ickening of the pannus. Musculoskeletal: Degenerative changes of the spine. IMPRESSION: 1. Cirrhosis with portal hypertension evidenced by splenomegaly and varices. 2. Evaluation for underlying hepatic lesion is limited on this single phase examination. Allowing fo r this, no gross evidence of hepatic lesion. Dedicated screening ultrasound or contrast-enhanced live r CT or MR could be obtained on a nonurgent basis. 3. Patent portal vein. 4. Cardiomegaly. 5. Bilateral nephrolithiasis. 6. Nonspecific skin thickening of the pannus. Correlate clinically to exclude cellulitis. Electronically signed by: Eren Solano M.D. 05/09/2018 7:09 AM
[2018-05-09] MEDS ORDERED: POTASSIUM CHLORIDE 20 MEQ TABCR PO STA (08:28)
[2018-05-09] MEDS: SPIRONOLACTONE 25 MG TAB PO SCH ×2 (08:43→18:20)
[2018-05-09] MEDS: POTASSIUM CHLORIDE 20 MEQ TABCR PO SCH ×3 (08:43→18:20)
[2018-05-09] MEDS: dilTIAZem HCL 120 MG CAPCR PO SCH ×2 (08:44→21:18)
[2018-05-09] MEDS: SERTRALINE HCL 50 MG TABLET PO SCH (08:44)
[2018-05-09] MEDS: LISINOPRIL 5 MG TAB PO SCH (08:44)
[2018-05-09] MEDS: PANTOprazole 40 MG TAB PO SCH (08:44)
[2018-05-09] MEDS: FUROSEMIDE 40 MG in SYRINGE 0 ML IV SCH ×2 (08:44→21:19)
[2018-05-09] MEDS: AMIODARONE 200 MG TAB PO SCH (08:44)
[2018-05-09 08:50] LABS: Basophils # (auto) 0.04 K/uL (0-0.2); Basophils % (auto) 0.5 %; Eosinophils # (auto) 0.17 K/uL (0-0.5); Eosinophils % (auto) 2.1 %; Hematocrit (blood only) 34.9 % (37-47); Hemoglobin 10.9 g/dL (12.0-16.0); Immature Granulocytes # (auto) 0.03 K/uL (0.00-0.02); Immature Granulocytes % (auto) 0.4 %; Lymphocytes # (auto) 1.34 K/uL (1.2-3.4); Lymphocytes % (auto) 16.5 %; Mean Corpuscular Hgb Conc 31.2 g/dL (32-36); Mean Corpuscular Volume 83.1 fL (80-100); Monocytes # (auto) 0.84 K/uL (0.11-0.59); Monocytes % (auto) 10.3 %; Neutrophils # (auto) 5.72 K/uL (1.4-6.5); Neutrophils % (auto) 70.2 %; Platelet Count 261 K/uL (130-400); RDW Coefficient of Variation 16.9 % (11.5-14.5); RDW Standard Deviation 51.6 fL (36.4-46.3); White Blood Count 8.14 K/uL (4.8-10.8)
[2018-05-09] MEDS: INSULIN ASPART 100 UNITS/ML 3 ML PEN SC SCH ×4 (08:54→21:26)
[2018-05-09] MEDS ORDERED: POTASSIUM CHLORIDE 20 MEQ TABCR PO SCH (09:15)
[2018-05-09] MEDS ORDERED: PERFLUTREN LIPID MICROSPHERE (DEFINITY) IV ONE (09:17)
[2018-05-09 09:44] LABS: Albumin Level 2.9 gm/dl (3.4-5.0); BUN Creatinine Ratio 12.1 (10-20); Calcium 8.7 mg/dl (8.5-10.1); Est GFR (African American) 60.1; Est GFR (Non-African American) 51.8; Potassium 3.2 mmol/L (3.5-5.1)
[2018-05-09 09:47] LABS: Albumin Globulin Ratio 0.7 (0.9-2); Bilirubin,Total 1.1 mg/dl (0.2-1); Globulin 4.2 gm/dl (2.5-4.0); Total Protein 7.1 gm/dl (6.4-8.2)
--- NOTE | 2018-05-09 10:05 | Gastrointestinal Consultation ---
Date of Consultation May 09, 2018 Assessment & Plan (1) Cirrhosis of liver: -Recently evaluated as an outpatient by Dr. Gonzalez -Continue outpatient HCC screening with AFP & US -Though ammonia is unremarkable and not likely to be the explanation for her fatigue, will add Xifaxan 550 mg BID to see if it improves the patients fatigue -Consider addition of Nadolol for varices if tolerated -See plan for ascites Present on Admission?: Yes (2) Ascites: -Diagnostic/therapeutic Paracentesis when able. Primary team will need to address her INR. Will order diagnostic fluid studies as well. -Albumin replacement pending total volume removed. -Continue Lasix and Aldactone; goal would be for a ratio of Lasix 40 mg: Aldactone 100 mg -2 gm sodium diet Present on Admission?: Yes Supervising Physician Co-Signing Physician Notes Agree with LC Mendes as above Abd: Distended, + fluid wave Paracentesis today with fluid studies Recommend Lasix 40 mg by mouth daily and Aldactone 100 mg by mouth daily. History of Present Illness Reason for Consultation: Ascites Attending Physician: Josr Alvarez DO History of Present Illness Patient is a 72 yo female with multiple medical comorbidities including cirrhosis and CHF. She reports significant fatigue. She was recently diagnosed with cirrhosis and was evaluated last month in our outpatient clinic by Dr. Gonzalez. She has had a colonoscopy & EGD in 2018. EGD indicated esophageal varices which led to her diagnosis of cirrhosis (thought to be related to non-alcoholic fatty liver disease). She presented to the hospital due to her fatigue. Imaging studies include a CT scan that indicated varices and concern for large volume ascites in the setting of cirrhosis. She is presently on Lasix & Aldactone, though she is only taking Aldactone 50 mg daily. She reports shortness of breath and abdominal discomfort due to the ascites. She is apprehensive about a paracentesis, but is agreeable to the procedure. She denies confusion, jaundice, itching, diarrhea, or constipation. She recently underwent sleep studies for her fatigue per her reports. Her LFTs are largely unremarkable with an AST of 60 and ALT of 28. Alk phos is 147. She had a recent unremarkable AFP. INR is 2.4 on Warfarin. Ammonia level is not very remarkable. She denies family history of liver disease. Allergies Allergy/AdvReac Type Severity Reaction Status Date / Time celecoxib Allergy Severe HIVES Verified 01/21/19 20:24 mivacurium Allergy Severe WHEEZES Verified 05/08/18 20:24 metoprolol AdvReac Mild DIZZINESS Verified 05/08/18 20:24 Home Medications Home Medications Medication Instructions Recorded Confirmed Type amiodarone 100 mg PO DAILY 05/08/18 05/08/18 History armodafinil 200 mg PO QAM 05/08/18 05/08/18 History cyanocobalamin (vitamin B-12) 1 ml IM MONTHLY 05/08/18 05/08/18 History diltiazem HCl 120 mg PO QPM 05/08/18 05/08/18 History diltiazem HCl 240 mg PO QAM 05/08/18 05/08/18 History furosemide 60 mg PO QAM 05/08/18 05/08/18 History glimepiride 1 mg PO BID PRN 05/08/18 05/08/18 History insulin glargine [Basaglar KwikPen 10 unit SUBCUT HS PRN 05/08/18 05/08/18 History U-100 Insulin] levothyroxine 150 mcg PO DAILY 05/08/18 05/08/18 History pantoprazole 20 mg PO DAILY 05/08/18 05/08/18 History potassium chloride 20 meq PO TID 05/08/18 05/08/18 History pravastatin 10 mg PO HS 05/08/18 05/08/18 History sertraline 50 mg PO DAILY 05/08/18 05/08/18 History warfarin [Jantoven] 2.5 mg PO WK 05/08/18 05/08/18 History warfarin [Jantoven] 5 mg PO 6XWK 05/08/18 05/08/18 History Patient History Medical History Atrial fibrillation (Chronic) CHF (congestive heart failure) (Chronic) Diabetes (Chronic) Fatty liver (Chronic) Non-alcoholic cirrhosis (Chronic) UTI (urinary tract infection) Warfarin anticoagulation Family History Other Family history non-contributory Social History marital status: Current Living Situation: Spouse Feels Safe at Home: Yes Safety Concerns: Feels Safe At This Time Smoking Status: Never smoker Hx Alcohol Use: No Hx Substance Use: No Beliefs That Will Affect Care: None Communication Ability: Effective Review of Systems Constitutional: + fatigue; no fever, no chills and no sweats No acute issues No acute issues Respiratory: no cough and no dyspnea Cardiovascular: no chest pain Gastrointestinal: + abdominal pain; no heartburn, no vomiting and no change in bowel habits Musculoskeletal: no back pain Integumentary: no rash Endocrine: + fatigue Hematologic / Lymphatic: + easy bleeding Physical Exam 2 Vital Signs (Past 24 Hours): Last Vital Signs Temp 36.9 C 05/09/18 07:00 Pulse 70 05/09/18 07:00 Resp 18 05/09/18 07:00 BP 172/83 H 05/09/18 07:00 Pulse Ox 92 05/09/18 07:00 Constitutional: WD/WN, vitals as above Eyes: PERRL, conjunctivae normal, anicteric sclerae Respiratory: normal respiratory effort, lungs clear to auscultation Cardiovascular: Rate/Rhythm: regular rate and regular rhythm Gastrointestinal (Abdomen): Percussion/Palpation: + abdomen tender and + ascites Musculoskeletal: no cyanosis or clubbing, extremities motor strength 5/5 Skin: no rashes, warm and dry Psychiatric: Orientation: alert and oriented x 3 _ (1) Ascites Ascites type: other type Qualified Code(s): R18.8 - Other ascites (2) Cirrhosis of liver Ascites presence: Hepatic cirrhosis type: other cirrhosis Qualified Code(s) : K74.69 - Other cirrhosis of liver
[2018-05-09] MEDS: MAGNESIUM OXIDE 400 MG TAB PO SCH ×2 (10:11→21:18)
[2018-05-09] MEDS: RIFAXIMIN 550 MG TABLET PO SCH ×2 (10:45→21:26)
--- NOTE | 2018-05-09 15:31 | Ultrasound Report ---
PARACENTESIS UNDER ULTRASOUND GUIDANCE CLINICAL HISTORY: Ascites COMPARISON STUDY: CT scan dated 05/09/2018 FINDINGS: The risks, benefits, and alternatives to the procedure were discussed with the patient. Gabriel bradley informed consent was obtained. Following real-time ultrasound localization, the skin was prepped and draped. Following local anesthesia with Xylocaine, the sheath paracentesis needle was inserted a nd approximately 5.9 liters of straw-colored fluid was removed by vacuum suction. A right lower quadrant approach was utilized. The patient tolerated the procedure well and left the department in satisfactory condition. IMPRESSION: Successful ultrasound-guided paracentesis with removal of approximately 5.9 liters of asc itic fluid. Electronically signed by: Kael Nobles M.D. 05/09/2018 3:29 PM
[2018-05-09] MEDS ORDERED: WARFARIN SOD 5 MG TAB PO SCH (16:00)
[2018-05-09 16:10] LABS: LDH Peritoneal Fluid 77 IU; Total Protein Peritoneal Fluid 2.7 g/dl
[2018-05-09 17:02] LABS: RBC Peritoneal Fluid (A) < 3000 /uL; WBC Peritoneal Fluid (A) 273 /ul (0-300)
--- NOTE | 2018-05-09 17:18 | Family Medicine Progress Note ---
Date of Service May 09, 2018 Assessment & Plan (1) Weakness of both lower extremities: Janneth is a 72yo F with a PMHx of Afib, diastolic heart failure, non- alcoholic liver cirrhosis, HTN, T2DM, and MELYSSA who presented to the ED with two months of increased fatigue and weakness. Abdominal ascites was present on admission. Cirrhosis - History of non-alcoholic cirrhosis. Her glycemic control is important from a hepatic standpoint, but has to be weighed against her weakness/reported hypoglycemia. -CT-A/P shows Cirrhosis with portal hypertension evidenced by splenomegaly and varices, no free air -Abd US: cirrhotic morphology, low volume ascites, portal vein suggestive of portal HTN vs thombus. On warfarin with INR = 2.4 - Furosemide 40mg BID IV - Spironolactone 25mg PO BID Ambulatory Dysfunction - Reports acute, but on history appears to be steadily chronic hitting a threshold in the last few weeks with severe deconditioning. Suspect multiple contributing factors, including elements of polypharmacy, severe ascites, deconditioning, and some hypoglycemia. - Will hold glimepiride, insulin SSI with glucose checks as noted below - Maintain amiodarone dosing per now, she was poorly rate controlled in the past (see below) - Ascities drained as noted below -PT/OT - Tentative plan post admission is for rehab at [facility]-fib -EKG with normal sinus rhythm and prolonged QT of 502ms, repeat 490ms -Avoid QT prolonging medications - Continue Amiodarone 100mg PO daily. Was reduced in Dec from 200mg. Follows with cardiology, prior to amiodarone she was difficult to rate control and had very poor quality of life and ambulatory ability due to her afib although she is a poor historian of such. -Continue diltiazem 240mg qAM, 120mg qPM - Warfarin 5mg 6xpw, 2.5mg 1xpw -Warfarin therapeutic with INR of 2.4 Abdominal Ascites - s/p paracentesis with 5.8L of fluid removal - She felt improved following paracentesis - Follow BP carefully overnight post procedure Heart failure -No acute exacerbation -ECHO shows LVEF 55-60%, LA severe dilation, no LVH, no valve abnormalities - Diuresis as above Diabetes - Has not been taking TRAM OPERATOR insulin 10U due to lows. On Glimepride at home -Prior A1c of 6.0 on 04/20/18 - Hold glimepiride. - SSI, glucose checks AC/HS - Lisinopril 5mg PO daily HTN - TRAM OPERATOR lisinopril as above GERD -Continue Protonix Depression -Continue Sertraline. Chronic med, but may be contributing to QTp noted above HLD - Continue Statin Hypokalemia -Secondary to Lasix -replace with home PO potassium - Klor oral repletion DVT PPX: Warfarin Code: Full Code Dispo: Likely [place] (2) T2DM (type 2 diabetes mellitus): (3) Ascites: (4) Cirrhosis of liver: (5) Heart failure: (6) Ambulatory dysfunction: (7) Afib: Supervising Physician Co-Signing Physician Notes I personally examined the patient and verified all lobo points of history and exam, discussed case, and agree with decision making with Dr Power. She is feeling weak and tired all the time. She notes that she is generally been getting weaker and sleeps all the time. She does have sleep apnea, but is quite compliant with her CPAP. She has been doing less and less and eating less and less. Of note she did have about 6 L removed at paracentesis and she does note that she feels somewhat better after this. She also notes that she had essentially stopped her diabetes medicines at home due to hypoglycemia Vitals noted, in general she is very fatigued appearing but no distress. HEENT normocephalic atraumatic mucous membranes are moist. Skin is no rashes pallor or icterus. Breathing is unlabored no accessory muscle use. Neuro shows no focal deficits Weakness/failure to thrive -Appears multifactorial with elements of her liver disease as well as deconditioning, as well as lesser contributions from polypharmacy and may be deficiencies -Paracentesis seems to have helped, continue management of liver disease -PT/OT and nutrition support, with plan for SNF placement -Check B12, replace mag and K -Stop diabetes meds -Continue to review for other meds that may be able to be stopped Subjective Janneth reports she feels tired today. Notes she feels similar to her fatigue over the last few weeks. Endorses feels of general weakness in her legs and poor balance. Denies difficulty breathing, lightheadedness, dizziness, chest pain, chest pressure, palpitations, vertigo. She endorses swelling in her belly , notes it has looked similar and unchanged over the last month. No abdominal pain. She endorses that she has had low sugars in the past and had difficulty with lantus overnight (she would have to get up and have a snack at night), but that her lantus was stopped and she had not had any feelings of low sugar in the last few days. No rash, skin changes. No fevers, chills. No vomiting, diarrhea, constipation. Review of Systems See HPI Physical Exam 2 Vital Signs (Past 24 Hours): Last Vital Signs Temp 36.9 C 05/09/18 07:00 Pulse 70 05/09/18 07:00 Resp 18 05/09/18 07:00 BP 172/83 H 05/09/18 07:00 Pulse Ox 92 05/09/18 07:00 Physical Exam: General: A&Ox3. NAD. Cooperative. HEENT: Atraumatic, normocephalic. Pulm: Moderate-Poor air movement. CTAB A&P. -wheezes, -rales, -rhonchi. Symmetrical chest rise. No respiratory distress. Cardiac: RRR, -mrg. Radial pulses intact and symmetrical. Abdominal: Nontender, tense, distended. Fluid wave +. BS present. _ (1) Ascites Ascites type: other type Qualified Code(s): R18.8 - Other ascites (2) Cirrhosis of liver Ascites presence: Hepatic cirrhosis type: other cirrhosis Qualified Code(s) : K74.69 - Other cirrhosis of liver
--- NOTE | 2018-05-09 18:31 | Cardiology Consultation ---
Date of Consultation May 09, 2018 Assessment & Plan (1) Chronic diastolic CHF (congestive heart failure): Clinically, she does not appear to be in a heart failure exacerbation. She does have edema but this could be multifactorial also from her cirrhosis and hypoalbuminemia. She is on higher doses of diuretics currently as per GI. Monitor renal function and electrolytes closely. Low-sodium diet. Daily weights recommended. Despite edema, she has not had shortness of breath but rather fatigue and balance issues. (2) Edema: Edema likely multifactorial. She does have a history of diastolic CHF however has been asymptomatic. It is difficult to know if her edema is mostly from cirrhosis with hypoalbuminemia versus heart failure but she has not had heart failure symptoms. Diuresing as above as per other providers. (3) Afib: Her atrial fibrillation has been well controlled and in sinus rhythm while on amiodarone since undergoing cardioversion in 2014. She did not tolerate rate control strategy in the past. Amiodarone is not thought to be the cause of her cirrhosis as discussed with GI in the past. We had a long discussion today with her family members present regarding amiodarone. We will continue current dose of 100 mg daily. Continue anticoagulation for stroke risk reduction. (4) Cirrhosis of liver: As per GI. (5) Ambulatory dysfunction: Not likely cardiac in nature. Recommend physical therapy. As per primary service. Disposition: Patient's presentation has been discussed with Dr. Alvarez of the primary hospitalist service. Please call with other questions or concerns. Thank you for allowing me to participate in the care of your patient. Please call for any other questions or concerns. Sincerely, Saad Caban M.D. History of Present Illness Reason for Consultation: CHF Requesting Physician: Dr. Vargas Attending Physician: Josr Alvarez DO History of Present Illness Mrs. Watson is a pleasant 72-year-old female history significant for atrial fibrillation, possible paroxysmal ventricular tachycardia versus aberrant conduction, and diastolic CHF. She also has a history hypertension, dyslipidemia , type 2 diabetes, sleep apnea on CPAP q.h.s., and hypothyroidism. She was recently diagnosed with cirrhosis and follows with GI. She was hospitalized on 05/08/2018 due to ambulatory dysfunction. For the past several months, she has been sleeping 18-20 hours per day. When awake, she has been less active and more sedentary than typical. This fatigue has been worsening progressively. She states that her balance is quite off and she is having difficulty walking at times. When she goes to the grocery store, she has to take breaks often. She denies shortness of breath, dyspnea with exertion, chest pain, palpitations, syncope, or near-syncope. She denies lightheadedness or dizziness. Approximately 2 weeks ago she had foot pain. She was seen by her simulation software engineer who prescribed her indomethacin for possible gout. She states that she took the medication for 5 days. The foot pain resolved quickly. Unfortunately, she has had progressively worsening edema since that time. She maintains a low- sodium diet. She denies orthopnea or PND. She has been occasionally confused or disoriented according the family members. They agree that she appears better in that regard today. Earlier today she underwent paracentesis and had removed approximately 6 L of fluid. She feels much better in that regard. Her abdomen had been more distended. She denies melena, hematochezia, hematuria, hematemesis, or other bleeding. She denies fevers, chills, nausea, vomiting. Review of systems: As above. Review of systems otherwise negative/ unremarkable. Social history: Denies tobacco, alcohol, or drug abuse. 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 She is and has 2 grown children and 2 grown grandchildren. She has great-grandchildren. She lives with her . Several family members are present at the bedside including , sister, and son. Family history: Father with MO at 66. Sister with hypertension. Mother at 47 due to a complication from her hernia repair. She has had the following studies: 1. Holter 06/14/12: Atrial fibrillation. Average HR 105 bpm (60 - 203). Frequent PVCs versus aberrantly conducted complexes. Several nonsustained wide-complex tachycardia, the longest consisted of 7 beats at 194 bpm. The aberrantly conducted A. fib versus VT. No significant pauses. No symptoms. 2. Echo 06/23/12: Normal LV size and systolic function. EF 50%. Moderate biatrial dilation. No significant valvular abnormalities. RVSP 43 mmHg. 3. Holter 02/08/13: A. fib. Average heart rate 94 (48-155). Occasional aberrant conduction. No symptoms. 4. Echo 04/19/14: EF 65%. Mild LVH. Severe left atrial dilation. Mild right atrial dilation. No significant valvular abnormalities. RSVP 31 mmHg. 5. Stress echo 08/16/2014: Negative stress echo and ECG at 103% MPHR. Accelerated chronotropic response. 1 min 20 seconds on Wil protocol. EF 60- 65% at rest. Mild LVH. Moderately dilated left atrium. Trace to mild MR. 6. Electrical cardioversion 09/26/2014: Successful cardioversion to sinus rhythm. 7. Holter 10/01/2014: Predominantly atrial fibrillation, representing 80% of the monitored time. Rhythm was otherwise sinus. Average heart rate 76, ranging from 43-115. No symptoms reported. 8. Nuclear stress 10/29/2014: No ischemia suggested. Large fixed anterior wall , anteroseptal wall, and anteroseptal wall defect from base to apex. Wall motion was unable to be evaluated secondary to atrial fibrillation. No transient ischemic dilation. Atrial fibrillation. 9. PFTs 01/30/2015: Mild restrictive disease. Severe reduction in DLCO. 10. Electrical cardioversion 02/21/2015: 200 joules failed. Three hundred joules successfully converted to sinus rhythm. This was after amiodarone load. 11. PFTs 07/28/2015: Normal spirometry. Moderately reduced DLCO. No significant restrictive disease. 12. Carotid duplex 09/11/2015: Bilateral ICA less than 50%. 13. PFTs 09/06/16: Normal spirometry. Normal lung volumes. Very mild reduction in DLCO. Allergies Allergy/AdvReac Type Severity Reaction Status Date / Time celecoxib Allergy Severe HIVES Verified 05/08/18 20:24 mivacurium Allergy Severe WHEEZES Verified 05/08/18 20:24 metoprolol AdvReac Mild DIZZINESS Verified 05/08/18 20:24 Home Medications Home Medications Medication Instructions Recorded Confirmed Type amiodarone 100 mg PO DAILY 05/08/18 05/08/18 History armodafinil 200 mg PO QAM 05/08/18 05/08/18 History cyanocobalamin (vitamin B-12) 1 ml IM MONTHLY 05/08/18 05/08/18 History diltiazem HCl 120 mg PO QPM 05/08/18 05/08/18 History diltiazem HCl 240 mg PO QAM 05/08/18 05/08/18 History furosemide 60 mg PO QAM 05/08/18 05/08/18 History glimepiride 1 mg PO BID PRN 05/08/18 05/08/18 History insulin glargine [Basaglar KwikPen 10 unit SUBCUT HS PRN 05/08/18 05/08/18 History U-100 Insulin] levothyroxine 150 mcg PO DAILY 05/08/18 05/08/18 History pantoprazole 20 mg PO DAILY 05/08/18 05/08/18 History potassium chloride 20 meq PO TID 05/08/18 05/08/18 History pravastatin 10 mg PO HS 05/08/18 05/08/18 History sertraline 50 mg PO DAILY 05/08/18 05/08/18 History warfarin [Jantoven] 2.5 mg PO WK 05/08/18 05/08/18 History warfarin [Jantoven] 5 mg PO [id number] 05/08/18 05/08/18 History Patient History Medical History Atrial fibrillation (Chronic) Diabetes (Chronic) Fatty liver (Chronic) Non-alcoholic cirrhosis (Chronic) Chronic diastolic CHF (congestive heart failure) Dyslipidemia Hypertension UTI (urinary tract infection) Warfarin anticoagulation Family History Other Family history non-contributory Social History marital status: Current Living Situation: Spouse Feels Safe at Home: Yes Safety Concerns: Feels Safe At This Time Smoking Status: Never smoker Hx Alcohol Use: No Hx Substance Use: No Beliefs That Will Affect Care: None Communication Ability: Effective Physical Exam 2 Vital Signs (Past 24 Hours): Last Vital Signs Temp 36.5 C 05/09/18 17:53 Pulse 65 05/09/18 17:53 Resp 20 05/09/18 17:53 BP 185/95 H 05/09/18 17:53 Pulse Ox 95 05/09/18 17:53 Intake & Output 05/07/18 05/08/18 05/09/18 05/10/18 06:59 06:59 06:59 06:59 Intake Total 200 / 200 400 / 400 Output Total 375 / 375 950 / 950 Balance -175 / -175 -550 / -550 Weight 105.1 kg Physical Exam: Gen.: No acute distress. Alert and oriented. HEENT: Anicteric sclera. Neck: No appreciable JVD, but thick neck. No bruits. Normal carotid upstrokes bilaterally. Cardiac: PMI was not palpable. No ventricular heave. Regular . Normal S1-S2. 2 /6 systolic ejection murmur. No rubs, or gallops. Pulmonary: Clear to auscultation bilaterally without wheezes, rales, or rhonchi. Abdomen: Soft, nontender, nondistended, with normoactive bowel sounds. No bruits noted. Extremities: 2+ radial pulses bilaterally. 2+ posterior tibialis pulses bilaterally. 1+ bilateral lower extremity edema. No cyanosis. Psychiatric: Affect appears appropriate. Results & Data Laboratory Results Laboratory Results - last 24 hr 05/08/18 05/08/18 05/08/18 17:35 17:35 19:25 WBC RBC Hgb Hct MCV MCH MCHC RDW Std Deviation RDW Coeff of Mynor Plt Count MPV Immature Gran % (Auto) Neut % (Auto) Lymph % (Auto) [place] % (Auto) Eos % (Auto) Baso % (Auto) Immature Gran # (Auto) Neut # (Auto) Lymph # (Auto) [place] # (Auto) Eos # (Auto) Baso # (Auto) ESR 63 H PT 22.7 H INR 2.4 H APTT 33.7 H PTT Ratio 1.3 Sodium Potassium Chloride Carbon Dioxide Anion Gap BUN Creatinine Est Cr Clr Drug Dosing Est GFR ( Amer) Est GFR (Non-Af Amer) BUN/Creatinine Ratio Glucose POC Glucose Estimat Average Glucose 137 Hemoglobin A1c 6.4 H Calcium Total Bilirubin AST ALT Alkaline Phosphatase Total Protein Albumin Globulin Albumin/Globulin Ratio Vitamin B12 Peritoneal Color Peritoneal Appearance Peritoneal WBC Peritoneal RBC Mononuclear WBCs % Polynuclear WBCs % Peritoneal Tot Protein Peritoneal Albumin Peritoneal LDH 05/08/18 05/08/18 05/09/18 19:28 21:19 05:45 WBC RBC Hgb Hct MCV MCH MCHC RDW Std Deviation RDW Coeff of Mynor Plt Count MPV Immature Gran % (Auto) Neut % (Auto) Lymph % (Auto) [place] % (Auto) Eos % (Auto) Baso % (Auto) Immature Gran # (Auto) Neut # (Auto) Lymph # (Auto) [place] # (Auto) Eos # (Auto) Baso # (Auto) ESR PT Cancelled INR Cancelled APTT PTT Ratio Sodium Potassium Chloride Carbon Dioxide Anion Gap BUN Creatinine Est Cr Clr Drug Dosing Est GFR ( Amer) Est GFR (Non-Af Amer) BUN/Creatinine Ratio Glucose POC Glucose 165 H 148 H Estimat Average Glucose Hemoglobin A1c Calcium Total Bilirubin AST ALT Alkaline Phosphatase Total Protein Albumin Globulin Albumin/Globulin Ratio Vitamin B12 Peritoneal Color Peritoneal Appearance Peritoneal WBC Peritoneal RBC Mononuclear WBCs % Polynuclear WBCs % Peritoneal Tot Protein Peritoneal Albumin Peritoneal LDH 05/09/18 05/09/18 05/09/18 05:45 06:23 07:47 WBC 8.14 RBC 4.20 Hgb 10.9 L Hct 34.9 L MCV 83.1 MCH 26.0 MCHC 31.2 L RDW Std Deviation 51.6 H RDW Coeff of Mynor 16.9 H Plt Count 261 MPV 11.0 H Immature Gran % (Auto) 0.4 Neut % (Auto) 70.2 Lymph % (Auto) 16.5 [place] % (Auto) 10.3 Eos % (Auto) 2.1 Baso % (Auto) 0.5 Immature Gran # (Auto) 0.03 H Neut # (Auto) 5.72 Lymph # (Auto) 1.34 [place] # (Auto) 0.84 H Eos # (Auto) 0.17 Baso # (Auto) 0.04 ESR PT 23.2 H INR 2.4 H APTT PTT Ratio Sodium Potassium Chloride Carbon Dioxide Anion Gap BUN Creatinine Est Cr Clr Drug Dosing Est GFR ( Amer) Est GFR (Non-Af Amer) BUN/Creatinine Ratio Glucose POC Glucose 82 Estimat Average Glucose Hemoglobin A1c Calcium Total Bilirubin AST ALT Alkaline Phosphatase Total Protein Albumin Globulin Albumin/Globulin Ratio Vitamin B12 Peritoneal Color Peritoneal Appearance Peritoneal WBC Peritoneal RBC Mononuclear WBCs % Polynuclear WBCs % Peritoneal Tot Protein Peritoneal Albumin Peritoneal LDH 05/09/18 05/09/18 05/09/18 08:49 11:36 17:05 WBC RBC Hgb Hct MCV MCH MCHC RDW Std Deviation RDW Coeff of Mynor Plt Count MPV Immature Gran % (Auto) Neut % (Auto) Lymph % (Auto) [place] % (Auto) Eos % (Auto) Baso % (Auto) Immature Gran # (Auto) Neut # (Auto) Lymph # (Auto) [place] # (Auto) Eos # (Auto) Baso # (Auto) ESR PT INR APTT PTT Ratio Sodium 139 Potassium 3.2 L Chloride 109 H Carbon Dioxide 24 Anion Gap 6.0 BUN 13 Creatinine 1.07 Est Cr Clr Drug Dosing 52.0 Est GFR ( Amer) 60.1 Est GFR (Non-Af Amer) 51.8 BUN/Creatinine Ratio 12.1 Glucose 167 H POC Glucose 243 H Estimat Average Glucose Hemoglobin A1c Calcium 8.7 Total Bilirubin 1.1 H AST 58 H ALT 26 Alkaline Phosphatase 136 H Total Protein 7.1 Albumin 2.9 L Globulin 4.2 H Albumin/Globulin Ratio 0.7 L Vitamin B12 964 H Peritoneal Color Peritoneal Appearance Peritoneal WBC Peritoneal RBC Mononuclear WBCs % Polynuclear WBCs % Peritoneal Tot Protein Peritoneal Albumin Peritoneal LDH 05/09/18 05/09/18 17:21 Unknown WBC RBC Hgb Hct MCV MCH MCHC RDW Std Deviation RDW Coeff of Mynor Plt Count MPV Immature Gran % (Auto) Neut % (Auto) Lymph % (Auto) [place] % (Auto) Eos % (Auto) Baso % (Auto) Immature Gran # (Auto) Neut # (Auto) Lymph # (Auto) [place] # (Auto) Eos # (Auto) Baso # (Auto) ESR PT INR APTT PTT Ratio Sodium Potassium Chloride Carbon Dioxide Anion Gap BUN Creatinine Est Cr Clr Drug Dosing Est GFR ( Amer) Est GFR (Non-Af Amer) BUN/Creatinine Ratio Glucose POC Glucose 110 H Estimat Average Glucose Hemoglobin A1c Calcium Total Bilirubin AST ALT Alkaline Phosphatase Total Protein Albumin Globulin Albumin/Globulin Ratio Vitamin B12 Peritoneal Color YELLOW Peritoneal Appearance CLEAR Peritoneal WBC 273 Peritoneal RBC < 3000 Mononuclear WBCs % 97.0 Polynuclear WBCs % 3.0 Peritoneal Tot Protein 2.7 Peritoneal Albumin 1.3 Peritoneal LDH 77 Diagnostic Findings ECG personally reviewed: ECG 05/08/2018 at 5:41 p.m.: Sinus rhythm 66 bpm. Prolonged QT. ECG 05/09/2018 at 10:04 a.m.: Sinus rhythm 70 bpm. Prolonged QT. QTC 490 ms. Echo 05/09/2018: Normal LV size, wall motion, systolic function. EF 55-60%. No significant diastolic dysfunction. Severe left atrial dilation. No significant valvular abnormalities visualized. Abdominal ascites. Chart reviewed. Abdominal/pelvis CT 05/09/2018: Cirrhosis with portal hypertension. Splenomegaly and varices. Patent portal vein. Cardiomegaly. Paracentesis: Ultrasound-guided paracentesis with removal of 5.9 L of ascitic fluid per Radiology. Medications Administered Current Inpatient Medications Al Hydrox/Mg Hydrox/Simethicone (Maalox) 30 ml PO Q6H PRN PRN Reason: Dyspepsia Stop: 06/08/18 01:26 Amiodarone HCl (Cordarone) 100 mg PO DAILY CORAL Stop: 06/08/18 08:59 Last Admin: 05/09/18 08:44 Dose: 100 mg Dextrose (Dextrose 50%) 25 - 50 ml IV UD PRN; Protocol PRN Reason: Hypoglycemia Protocol Stop: 06/08/18 01:26 Diltiazem HCl (Cardizem Cd) 120 mg PO QPM CORAL Stop: 06/08/18 20:59 Diltiazem HCl (Cardizem Cd) 240 mg PO QAM CORAL Stop: 06/08/18 08:59 Last Admin: 05/09/18 08:44 Dose: 240 mg Glucagon (Glucagen) 1 mg SQ UD PRN; Protocol PRN Reason: Hypoglycemia Protocol Stop: 06/08/18 01:26 Glucose (Glucose 40%) 15 - 30 gm PO UD PRN; Protocol PRN Reason: Hypoglycemia Protocol Stop: 06/08/18 01:26 Glucose (Dex4 Glucose) 4 - 8 tabs PO UD PRN; Protocol PRN Reason: Hypoglycemia Protocol Stop: 06/08/18 01:26 Furosemide 40 mg/ Syringe 4 mls @ 4 mls/min IV BID [facility] Stop: 06/08/18 08:59 Last Admin: 05/09/18 08:44 Dose: 4 mls/min Insulin Aspart (Novolog Flexpen) 0 units SC ACHS [facility] Stop: 06/08/18 07:29 Last Admin: 05/09/18 18:21 Dose: 2 units Ioversol (Optiray 320 100ml) 100 ml IV ONCE PRN PRN Reason: Interaction Checking Stop: 05/13/18 02:09 Last Admin: 05/09/18 02:10 Dose: 92 ml Levothyroxine Sodium (Synthroid) 150 mcg PO DAILYBB [facility] Stop: 06/08/18 06:29 Last Admin: 05/09/18 06:02 Dose: 150 mcg Lisinopril (Zestril) 5 mg PO QAM [facility] Stop: 06/08/18 08:59 Last Admin: 05/09/18 08:44 Dose: 5 mg Magnesium Hydroxide (Milk Of Magnesia) 30 ml PO Q6H PRN PRN Reason: Constipation Stop: 06/08/18 01:26 Magnesium Oxide (Mag-Ox) 400 mg PO BID [facility] Stop: 06/08/18 09:14 Last Admin: 05/09/18 10:11 Dose: 400 mg Miscellaneous (Carbohydrates For Hypoglycemia) 15 - 30 gm PO UD PRN PRN Reason: Hypoglycemia Treatment Stop: 06/08/18 01:26 Ondansetron HCl (Zofran) 4 mg IV Q6H PRN PRN Reason: Nausea Stop: 06/08/18 01:26 Pantoprazole Sodium (Protonix) 40 mg PO DAILY [facility] Stop: 06/08/18 08:59 Last Admin: 05/09/18 08:44 Dose: 40 mg Polyethylene Glycol (Miralax Powder Packet) 17 gm PO DAILY PRN PRN Reason: Constipation Stop: 06/08/18 01:26 Potassium Chloride (Klor-Con M20) 20 meq PO TIDM [facility] Stop: 06/08/18 07:59 Last Admin: 05/09/18 18:20 Dose: 20 meq Pravastatin Sodium (Pravachol) 10 mg PO HS [facility] Stop: 06/08/18 20:59 Rifaximin (Xifaxan) 550 mg PO BID [facility] Stop: 06/08/18 10:14 Last Admin: 05/09/18 10:45 Dose: 550 mg Sertraline HCl (Zoloft) 50 mg PO DAILY [facility] Stop: 06/08/18 08:59 Last Admin: 05/09/18 08:44 Dose: 50 mg Spironolactone (Aldactone) 25 mg PO BIDM [facility] Stop: 06/08/18 07:59 Last Admin: 05/09/18 18:20 Dose: 25 mg Warfarin Sodium (Coumadin) 2.5 mg PO [id number] [facility] Stop: 06/14/18 15:59 Warfarin Sodium (Coumadin) 5 mg PO [id number] [facility] Stop: 06/08/18 15:59 _ (1) Cirrhosis of liver Ascites presence: Hepatic cirrhosis type: other cirrhosis Qualified Code(s) : K74.69 - Other cirrhosis of liver
[2018-05-09] MEDS ORDERED: NURSING DECISION MEDICATION ONE (18:42)
[2018-05-09] MEDS ORDERED: MICONAZOLE NITRATE POWDER 43 GM EXT PRN (18:48)
[2018-05-09] MEDS: PRAVASTATIN SOD 10 MG TAB PO SCH (21:18)
[2018-05-10] MEDS: LEVOTHYROXINE SODIUM 150 MCG TABLET PO SCH (06:04)
[2018-05-10 07:05] LABS: Hematocrit (blood only) 36.4 % (37-47); Hemoglobin 11.3 g/dL (12.0-16.0); Mean Corpuscular Volume 83.3 fL (80-100); Mean Platelet Volume 10.6 fL (7.4-10.4); Platelet Count 248 K/uL (130-400); RDW Coefficient of Variation 16.9 % (11.5-14.5); RDW Standard Deviation 51.7 fL (36.4-46.3); Red Blood Count 4.37 M/uL (4.2-5.4); White Blood Count 7.68 K/uL (4.8-10.8)
[2018-05-10 07:19] LABS: INR 2.1 (0.9-1.1); Prothrombin Time 20.5 Seconds (9.0-12.0)
[2018-05-10 07:41] LABS: BUN Creatinine Ratio 12.8 (10-20); Calcium 8.4 mg/dl (8.5-10.1); Creatinine Clr Calc Pharmacy 43.8 ml/min; Est GFR (African American) 48.8; Est GFR (Non-African American) 42.1; Potassium 3.3 mmol/L (3.5-5.1)
[2018-05-10] MEDS: AMIODARONE 200 MG TAB PO SCH (08:21)
[2018-05-10] MEDS: SPIRONOLACTONE 25 MG TAB PO SCH ×2 (08:22→16:18)
[2018-05-10] MEDS: POTASSIUM CHLORIDE 20 MEQ TABCR PO SCH ×3 (08:22→16:18)
[2018-05-10] MEDS: PANTOprazole 40 MG TAB PO SCH (08:22)
[2018-05-10] MEDS: dilTIAZem HCL 120 MG CAPCR PO SCH ×2 (08:23→20:52)
[2018-05-10] MEDS: RIFAXIMIN 550 MG TABLET PO SCH ×2 (08:23→22:04)
[2018-05-10] MEDS: LISINOPRIL 5 MG TAB PO SCH (08:23)
[2018-05-10] MEDS: FUROSEMIDE 40 MG in SYRINGE 0 ML IV SCH ×2 (08:23→20:54)
[2018-05-10] MEDS: MAGNESIUM OXIDE 400 MG TAB PO SCH ×2 (08:24→20:51)
[2018-05-10] MEDS: SERTRALINE HCL 50 MG TABLET PO SCH (08:24)
[2018-05-10] MEDS: INSULIN ASPART 100 UNITS/ML 3 ML PEN SC SCH ×4 (08:26→20:46)
[2018-05-10] MEDS ORDERED: ALBUMIN 25% 50 ML IV SCH (09:00)
[2018-05-10] MEDS ORDERED: ALBUMIN 25% 50 ML IV ONE ×2 (09:00→10:00)
--- NOTE | 2018-05-10 10:57 | Cardiology Progress Note ---
Date of Service May 10, 2018 Assessment & Plan (1) Chronic diastolic CHF (congestive heart failure): She does not appear to be significantly hypervolemic. She does have edema but this could be multifactorial also from her cirrhosis and hypoalbuminemia. Edema has improved. She diuresed nicely yesterday. She is on higher doses of diuretics currently as per GI. Monitor renal function and electrolytes closely. Low-sodium diet. Daily weights recommended. Despite edema, she has not had shortness of breath but rather fatigue and balance issues. (2) Edema: Edema likely multifactorial. She has cirrhosis with hypoalbuminemia. She also has a history of CHF however appears to be compensated in that regard. Edema has improved. Continue current dose (3) Afib: Her atrial fibrillation has been well controlled and in sinus rhythm while on amiodarone since undergoing cardioversion in 2014. She did not tolerate rate control strategy in the past. Amiodarone is not thought to be the cause of her cirrhosis as discussed with GI in the past. Continue current dose of amiodarone 100 mg daily. Continue anticoagulation for stroke risk reduction. (4) Cirrhosis of liver: As per GI. (5) Ambulatory dysfunction: Not likely cardiac in nature. Recommend physical therapy. As per primary service. Disposition: Cardiology will sign off at this time. Dr. Alvarez is attempting to get her into rehab today if able, otherwise tomorrow. Plan of care discussed with Dr. Alvarez. Subjective She feels much better today. She denies chest pain, shortness of breath, palpitations, or syncope. Her energy level is much better. She feels much less sleepy. Review of systems: As above. Physical Exam 2 Vital Signs (Past 24 Hours): Last Vital Signs Temp 36.5 C 05/10/18 10:53 Pulse 75 05/10/18 10:53 Resp 16 05/10/18 10:53 BP 146/75 H 05/10/18 10:53 Pulse Ox 96 05/10/18 10:53 Intake & Output 05/08/18 05/09/18 05/10/18 05/11/18 06:59 06:59 06:59 06:59 Intake Total 200 / 200 600 / 600 Output Total 375 / 375 1650 / 1650 Balance -175 / -175 -1050 / -1050 Weight 105.1 kg 94.8 kg Physical Exam: Gen.: No acute distress. Alert and oriented. HEENT: Anicteric sclera. Neck: No appreciable JVD, but thick neck. Cardiac: Regular . Normal S1-S2. 2/6 systolic ejection murmur. No rubs, or gallops. Pulmonary: Clear to auscultation bilaterally without wheezes, rales, or rhonchi. Abdomen: Soft, nontender, nondistended, with normoactive bowel sounds. No bruits noted. Extremities: Trace bilateral lower extremity edema. No cyanosis. Psychiatric: Affect appears appropriate. Results & Data Laboratory Results Laboratory Results - last 24 hr 05/09/18 05/09/18 05/09/18 11:36 17:05 17:21 WBC RBC Hgb Hct MCV MCH MCHC RDW Std Deviation RDW Coeff of Mynor Plt Count MPV PT INR Sodium Potassium Chloride Carbon Dioxide Anion Gap BUN Creatinine Est Cr Clr Drug Dosing Est GFR ( Amer) Est GFR (Non-Af Amer) BUN/Creatinine Ratio Glucose POC Glucose 243 H 110 H Calcium Vitamin B12 964 H Peritoneal Color Peritoneal Appearance Peritoneal WBC Peritoneal RBC Mononuclear WBCs % Polynuclear WBCs % Peritoneal Tot Protein Peritoneal Albumin Peritoneal LDH 05/09/18 05/09/18 05/10/18 20:25 Unknown 06:57 WBC RBC Hgb Hct MCV MCH MCHC RDW Std Deviation RDW Coeff of Mynor Plt Count MPV PT 20.5 H INR 2.1 H Sodium Potassium Chloride Carbon Dioxide Anion Gap BUN Creatinine Est Cr Clr Drug Dosing Est GFR ( Amer) Est GFR (Non-Af Amer) BUN/Creatinine Ratio Glucose POC Glucose 134 H Calcium Vitamin B12 Peritoneal Color YELLOW Peritoneal Appearance CLEAR Peritoneal WBC 273 Peritoneal RBC < 3000 Mononuclear WBCs % 97.0 Polynuclear WBCs % 3.0 Peritoneal Tot Protein 2.7 Peritoneal Albumin 1.3 Peritoneal LDH 77 05/10/18 05/10/18 05/10/18 06:57 06:58 07:39 WBC 7.68 RBC 4.37 Hgb 11.3 L Hct 36.4 L MCV 83.3 MCH 25.9 MCHC 31.0 L RDW Std Deviation 51.7 H RDW Coeff of Mynor 16.9 H Plt Count 248 MPV 10.6 H PT INR Sodium 141 Potassium 3.3 L Chloride 110 H Carbon Dioxide 26 Anion Gap 5.0 BUN 16 Creatinine 1.27 H Est Cr Clr Drug Dosing 43.8 Est GFR ( Amer) 48.8 Est GFR (Non-Af Amer) 42.1 BUN/Creatinine Ratio 12.8 Glucose 100 H POC Glucose 115 H Calcium 8.4 L Vitamin B12 Peritoneal Color Peritoneal Appearance Peritoneal WBC Peritoneal RBC Mononuclear WBCs % Polynuclear WBCs % Peritoneal Tot Protein Peritoneal Albumin Peritoneal LDH Medications Administered Current Inpatient Medications Al Hydrox/Mg Hydrox/Simethicone (Maalox) 30 ml PO Q6H PRN PRN Reason: Dyspepsia Stop: 06/08/18 01:26 Amiodarone HCl (Cordarone) 100 mg PO DAILY [facility] Stop: 06/08/18 08:59 Last Admin: 05/10/18 08:21 Dose: 100 mg Dextrose (Dextrose 50%) 25 - 50 ml IV UD PRN; Protocol PRN Reason: Hypoglycemia Protocol Stop: 06/08/18 01:26 Diltiazem HCl (Cardizem Cd) 120 mg PO QPM [facility] Stop: 06/08/18 20:59 Last Admin: 05/09/18 21:18 Dose: 120 mg Diltiazem HCl (Cardizem Cd) 240 mg PO QAM [facility] Stop: 06/08/18 08:59 Last Admin: 05/10/18 08:23 Dose: 240 mg Glucagon (Glucagen) 1 mg SQ UD PRN; Protocol PRN Reason: Hypoglycemia Protocol Stop: 06/08/18 01:26 Glucose (Glucose 40%) 15 - 30 gm PO UD PRN; Protocol PRN Reason: Hypoglycemia Protocol Stop: 06/08/18 01:26 Glucose (Dex4 Glucose) 4 - 8 tabs PO UD PRN; Protocol PRN Reason: Hypoglycemia Protocol Stop: 06/08/18 01:26 Furosemide 40 mg/ Syringe 4 mls @ 4 mls/min IV BID [facility] Stop: 06/08/18 08:59 Last Admin: 05/10/18 08:23 Dose: 4 mls/min Albumin Human (Albumin 25%) 50 mls @ 50 mls/hr IV 1000 ONE Stop: 05/10/18 10:59 Insulin Aspart (Novolog Flexpen) 0 units SC ACHS [facility] Stop: 06/08/18 07:29 Last Admin: 05/10/18 08:26 Dose: 3 units Ioversol (Optiray 320 100ml) 100 ml IV ONCE PRN PRN Reason: Interaction Checking Stop: 05/13/18 02:09 Last Admin: 05/09/18 02:10 Dose: 92 ml Levothyroxine Sodium (Synthroid) 150 mcg PO DAILYBB [facility] Stop: 06/08/18 06:29 Last Admin: 05/10/18 06:04 Dose: 150 mcg Lisinopril (Zestril) 5 mg PO QAM [facility] Stop: 06/08/18 08:59 Last Admin: 05/10/18 08:23 Dose: 5 mg Magnesium Hydroxide (Milk Of Magnesia) 30 ml PO Q6H PRN PRN Reason: Constipation Stop: 06/08/18 01:26 Magnesium Oxide (Mag-Ox) 400 mg PO BID [facility] Stop: 06/08/18 09:14 Last Admin: 05/10/18 08:24 Dose: 400 mg Miconazole Nitrate (Desenex) 1 appln EXT PRN PRN PRN Reason: Affected Skin Folds Stop: 06/08/18 18:47 Miscellaneous (Carbohydrates For Hypoglycemia) 15 - 30 gm PO UD PRN PRN Reason: Hypoglycemia Treatment Stop: 06/08/18 01:26 Ondansetron HCl (Zofran) 4 mg IV Q6H PRN PRN Reason: Nausea Stop: 06/08/18 01:26 Pantoprazole Sodium (Protonix) 40 mg PO DAILY [facility] Stop: 06/08/18 08:59 Last Admin: 05/10/18 08:22 Dose: 40 mg Polyethylene Glycol (Miralax Powder Packet) 17 gm PO DAILY PRN PRN Reason: Constipation Stop: 06/08/18 01:26 Potassium Chloride (Klor-Con M20) 20 meq PO TIDM [facility] Stop: 06/08/18 07:59 Last Admin: 05/10/18 08:22 Dose: 20 meq Pravastatin Sodium (Pravachol) 10 mg PO HS [facility] Stop: 06/08/18 20:59 Last Admin: 05/09/18 21:18 Dose: 10 mg Rifaximin (Xifaxan) 550 mg PO BID [facility] Stop: 06/08/18 10:14 Last Admin: 05/10/18 08:23 Dose: 550 mg Sertraline HCl (Zoloft) 50 mg PO DAILY [facility] Stop: 06/08/18 08:59 Last Admin: 01/23/19 08:24 Dose: 50 mg Spironolactone (Aldactone) 25 mg PO BIDM [facility] Stop: 06/08/18 07:59 Last Admin: 05/10/18 08:22 Dose: 25 mg Warfarin Sodium (Coumadin) 2.5 mg PO Mo@1600 [facility] Stop: 06/14/18 15:59 Warfarin Sodium (Coumadin) 5 mg PO SuTuWeThFrSa@1600 [facility] Stop: 06/08/18 15:59 _ (1) Cirrhosis of liver Ascites presence: Hepatic cirrhosis type: other cirrhosis Qualified Code(s) : K74.69 - Other cirrhosis of liver
--- NOTE | 2018-05-10 12:52 | Gastroenterology Progress Note ---
Date of Service May 10, 2018 Assessment & Plan (1) Cirrhosis of liver: -Recently evaluated as an outpatient by Dr. Gonzalez -Continue outpatient HCC screening with AFP & US -Continue Xifaxan 550 mg BID -Consider addition of Nadolol for varices if tolerated -See plan for ascites (2) Ascites: -Diagnostic/therapeutic Paracentesis indicated a SAAG of 1.6 consistent with portal hypertension. No evidence for SBP. She has been given 25 mg Albumin. -Continue Lasix 40 mg daily and Aldactone 100 mg daily. -Continue to monitor abdomen and continue diuretics. Would hope to not need another paracentesis, but will continue to evaluate. 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 Subjective Patient is a 72 yo female hospitalized with abdominal ascites. She underwent a paracentesis on 05/09/2018 during which 5.9 L was removed. She reports she feels significantly better today. She did reportedly continue to leak from the site of her paracentesis overnight. This seems to have improved. She reports she feels less tired. She denies respiratory issues. She denies abdominal pain. She offers no further complaints. Constitutional: no fever, no chills and no sweats Respiratory: no cough and no dyspnea Cardiovascular: no chest pain Gastrointestinal: no abdominal pain, no heartburn, no vomiting and no change in bowel habits Musculoskeletal: no back pain Endocrine: + fatigue Hematologic / Lymphatic: + easy bleeding Physical Exam 2 Vital Signs (Past 24 Hours): Last Vital Signs Temp 36.4 C L 05/10/18 12:45 Pulse 70 05/10/18 12:45 Resp 18 05/10/18 12:45 BP 151/72 H 05/10/18 12:45 Pulse Ox 96 05/10/18 11:16 Constitutional: WD/WN, vitals as above Eyes: PERRL, conjunctivae normal, anicteric sclerae Respiratory: normal respiratory effort, lungs clear to auscultation Cardiovascular: Rate/Rhythm: regular rate and regular rhythm Gastrointestinal (Abdomen): Inspection/Auscultation: + abdomen distended and normal bowel sounds Percussion/Palpation: abdomen nontender ascites improved Musculoskeletal: no cyanosis or clubbing, extremities motor strength 5/5 Skin: no rashes, warm and dry Psychiatric: Orientation: alert and oriented x 3 _ (1) Ascites Ascites type: other type Qualified Code(s): R18.8 - Other ascites (2) Cirrhosis of liver Ascites presence: Hepatic cirrhosis type: other cirrhosis Qualified Code(s) : K74.69 - Other cirrhosis of liver
--- NOTE | 2018-05-10 19:10 | Family Medicine Progress Note ---
Date of Service May 10, 2018 Assessment & Plan (1) Weakness of both lower extremities: Janneth is a 72yo F with a PMHx of Afib, diastolic heart failure, non- alcoholic liver cirrhosis, HTN, T2DM, and MELYSSA who presented to the ED with two months of increased fatigue and weakness. Abdominal ascites was present on admission. Cirrhosis - History of non-alcoholic cirrhosis. Her glycemic control is important from a hepatic standpoint, but has to be weighed against her weakness/reported hypoglycemia. -CT-A/P shows Cirrhosis with portal hypertension evidenced by splenomegaly and varices, no free air -Abd US: cirrhotic morphology, low volume ascites, portal vein suggestive of portal HTN vs thombus. On warfarin with INR = 2.4 - Furosemide 40mg BID IV - Spironolactone 25mg PO BID Ambulatory Dysfunction - Reports acute, but on history appears to be steadily chronic hitting a threshold in the last few weeks with severe deconditioning. Suspect multiple contributing factors, including elements of polypharmacy, severe ascites, deconditioning, and some hypoglycemia. - Will hold glimepiride, insulin SSI with glucose checks as noted below - Maintain amiodarone dosing per now, she was poorly rate controlled in the past (see below) - Ascities drained as noted below -PT/OT - Greatly improved following paracentesis - Pending d/c to [facility] tomorrow A-fib -EKG with normal sinus rhythm and prolonged QT of 502ms, repeat 490ms -Avoid QT prolonging medications - Continue Amiodarone 100mg PO daily. Was reduced in Dec from 200mg. Follows with cardiology, prior to amiodarone she was difficult to rate control and had very poor quality of life and ambulatory ability due to her afib although she is a poor historian of such. -Continue diltiazem 240mg qAM, 120mg qPM - Warfarin 5mg 6xpw, 2.5mg 1xpw -Warfarin therapeutic with INR of 2.4 Abdominal Ascites - s/p paracentesis with 5.8L of fluid removal - She felt improved following paracentesis - Follow BP carefully overnight post procedure Heart failure -No acute exacerbation -ECHO shows LVEF 55-60%, LA severe dilation, no LVH, no valve abnormalities - Diuresis as above Diabetes - Has not been taking [employer] insulin 10U due to lows. On Glimepride at home -Prior A1c of 6.0 on 04/20/18 - Hold glimepiride. - SSI, glucose checks AC/HS - Lisinopril 5mg PO daily HTN - [employer] [employer] lisinopril as above GERD -Continue Protonix Depression -Continue Sertraline. Chronic med, but may be contributing to QTp noted above HLD - Continue Statin Hypokalemia -Secondary to Lasix -replace with home PO potassium - Klor oral repletion DVT PPX: Warfarin Code: Full Code Dispo: Likely [facility] (2) T2DM (type 2 diabetes mellitus): (3) Ascites: (4) Cirrhosis of liver: (5) Heart failure: (6) Ambulatory dysfunction: (7) Afib: Supervising Physician Co-Signing Physician Notes I personally examined the patient and verified all lobo points of history and exam, discussed case, and agree with decision making with Dr Power. Feeling much better. She has better energy, and overall feels more lively. She is optimistic for PT and OT at [facility]. Vitals noted, in general she is very fatigued appearing but no distress. HEENT normocephalic atraumatic mucous membranes are moist. Skin is no rashes pallor or icterus. Breathing is unlabored no accessory muscle use. Neuro shows no focal deficits Weakness/failure to thrive -Appears multifactorial with elements of her liver disease as well as deconditioning, as well as lesser contributions from polypharmacy and may be deficiencies -Paracentesis seems to have helped, continue management of liver disease, and as needed repeat therapeutic paracenteses -PT/OT and nutrition support, ongoing at [facility] -replaced mag and K, B12 was okay -Stop diabetes meds -Continue to review for other meds that may be able to be stopped Anticipate SNF once possible Subjective Janneth reports she feels much, much better after her paracentesis. She reports her energy is the best it has felt in 'a long time.' She reports she is breathing well without shortness of breath today. She notes she is leaking some fluid at the paracentesis site. Slowed down this morning, but soaked two abd pads this morning. No bloody discharge or pain. Engaged, feeling stronger. Understands that rehab will help with her strength and is agreeable to inpatient rehab, OK with [facility]. No chest pain, shortness of breath, fever, chills, nausea, vomiting, diarrhea, constipation. Still feels some weakness, but improved. Physical Exam 2 Vital Signs (Past 24 Hours): Last Vital Signs Temp 36.9 C 05/10/18 16:16 Pulse 64 05/10/18 16:16 Resp 20 05/10/18 16:16 BP 139/69 05/10/18 16:16 Pulse Ox 95 05/10/18 16:16 Physical Exam: General: A&Ox3. NAD. Cooperative. HEENT: Atraumatic, normocephalic. Pulm: Moderate-Poor air movement. CTAB A&P. -wheezes, -rales, -rhonchi. Symmetrical chest rise. No respiratory distress. Cardiac: RRR, -mrg. Radial pulses intact and symmetrical. Abdominal: Nontender, softly distended improved from prior. Small ascitic fluid leak from tap site on LRQ. BS present. Results & Data Laboratory Results Abnormal lab results 05/09/18 05/10/18 05/10/18 Range/Units 20:25 06:57 06:57 Hgb (12.0-16.0) g/dL Hct (37-47) % MCHC (32-36) g/dL RDW Std Deviation (36.4-46.3) fL RDW Coeff of Mynor (11.5-14.5) % MPV (7.4-10.4) fL PT 20.5 H (9.0-12.0) Seconds INR 2.1 H (0.9-1.1) Potassium 3.3 L (3.5-5.1) mmol/L Chloride 110 H (98-107) mmol/L Creatinine 1.27 H (0.6-1.2) mg/dl Glucose 100 H (70-99) mg/dl POC Glucose 134 H (70-99) Calcium 8.4 L (8.5-10.1) mg/dl 05/10/18 05/10/18 05/10/18 Range/Units 06:58 07:39 11:15 Hgb 11.3 L (12.0-16.0) g/dL Hct 36.4 L (37-47) % MCHC 31.0 L (32-36) g/dL RDW Std Deviation 51.7 H (36.4-46.3) fL RDW Coeff of Mynor 16.9 H (11.5-14.5) % MPV 10.6 H (7.4-10.4) fL PT (9.0-12.0) Seconds INR (0.9-1.1) Potassium (3.5-5.1) mmol/L Chloride (98-107) mmol/L Creatinine (0.6-1.2) mg/dl Glucose (70-99) mg/dl POC Glucose 115 H 265 H (70-99) Calcium (8.5-10.1) mg/dl Medications Administered Current Inpatient Medications Al Hydrox/Mg Hydrox/Simethicone (Maalox) 30 ml PO Q6H PRN PRN Reason: Dyspepsia Stop: 06/08/18 01:26 Amiodarone HCl (Cordarone) 100 mg PO DAILY [facility] Stop: 06/08/18 08:59 Last Admin: 05/10/18 08:21 Dose: 100 mg Dextrose (Dextrose 50%) 25 - 50 ml IV UD PRN; Protocol PRN Reason: Hypoglycemia Protocol Stop: 06/08/18 01:26 Diltiazem HCl (Cardizem Cd) 120 mg PO QPM [facility] Stop: 06/08/18 20:59 Last Admin: 05/09/18 21:18 Dose: 120 mg Diltiazem HCl (Cardizem Cd) 240 mg PO QAM [facility] Stop: 06/08/18 08:59 Last Admin: 05/10/18 08:23 Dose: 240 mg Glucagon (Glucagen) 1 mg SQ UD PRN; Protocol PRN Reason: Hypoglycemia Protocol Stop: 06/08/18 01:26 Glucose (Glucose 40%) 15 - 30 gm PO UD PRN; Protocol PRN Reason: Hypoglycemia Protocol Stop: 06/08/18 01:26 Glucose (Dex4 Glucose) 4 - 8 tabs PO UD PRN; Protocol PRN Reason: Hypoglycemia Protocol Stop: 06/08/18 01:26 Furosemide 40 mg/ Syringe 4 mls @ 4 mls/min IV BID [facility] Stop: 06/08/18 08:59 Last Admin: 05/10/18 08:23 Dose: 4 mls/min Insulin Aspart (Novolog Flexpen) 0 units SC ACHS [facility] Stop: 06/08/18 07:29 Last Admin: 05/10/18 18:01 Dose: 2 units Ioversol (Optiray 320 100ml) 100 ml IV ONCE PRN PRN Reason: Interaction Checking Stop: 05/13/18 02:09 Last Admin: 05/09/18 02:10 Dose: 92 ml Levothyroxine Sodium (Synthroid) 150 mcg PO DAILYBB [facility] Stop: 06/08/18 06:29 Last Admin: 05/10/18 06:04 Dose: 150 mcg Lisinopril (Zestril) 5 mg PO QAM [facility] Stop: 06/08/18 08:59 Last Admin: 05/10/18 08:23 Dose: 5 mg Magnesium Hydroxide (Milk Of Magnesia) 30 ml PO Q6H PRN PRN Reason: Constipation Stop: 06/08/18 01:26 Magnesium Oxide (Mag-Ox) 400 mg PO BID [facility] Stop: 06/08/18 09:14 Last Admin: 05/10/18 08:24 Dose: 400 mg Miconazole Nitrate (Desenex) 1 appln EXT PRN PRN PRN Reason: Affected Skin Folds Stop: 06/08/18 18:47 Miscellaneous (Carbohydrates For Hypoglycemia) 15 - 30 gm PO UD PRN PRN Reason: Hypoglycemia Treatment Stop: 06/08/18 01:26 Ondansetron HCl (Zofran) 4 mg IV Q6H PRN PRN Reason: Nausea Stop: 06/08/18 01:26 Pantoprazole Sodium (Protonix) 40 mg PO DAILY [facility] Stop: 06/08/18 08:59 Last Admin: 05/10/18 08:22 Dose: 40 mg Polyethylene Glycol (Miralax Powder Packet) 17 gm PO DAILY PRN PRN Reason: Constipation Stop: 06/08/18 01:26 Potassium Chloride (Klor-Con M20) 20 meq PO TIDM [facility] Stop: 06/08/18 07:59 Last Admin: 05/10/18 16:18 Dose: 20 meq Pravastatin Sodium (Pravachol) 10 mg PO HS [facility] Stop: 06/08/18 20:59 Last Admin: 05/09/18 21:18 Dose: 10 mg Rifaximin (Xifaxan) 550 mg PO BID [facility] Stop: 06/08/18 10:14 Last Admin: 05/10/18 08:23 Dose: 550 mg Sertraline HCl (Zoloft) 50 mg PO DAILY [facility] Stop: 06/08/18 08:59 Last Admin: 05/10/18 08:24 Dose: 50 mg Spironolactone (Aldactone) 25 mg PO BIDM [facility] Stop: 06/08/18 07:59 Last Admin: 05/10/18 16:18 Dose: 25 mg Warfarin Sodium (Coumadin) 2.5 mg PO Mo@1600 [facility] Stop: 06/14/18 15:59 Warfarin Sodium (Coumadin) 5 mg PO SuTuWeThFrSa@1600 [facility] Stop: 06/08/18 15:59 Last Admin: 05/10/18 16:18 Dose: 5 mg Resident Activity Tracking Resident Involvement: Resident Care Provided Care Provided: [facility] Medicine _ (1) Ascites Ascites type: other type Qualified Code(s): R18.8 - Other ascites (2) Cirrhosis of liver Ascites presence: Hepatic cirrhosis type: other cirrhosis Qualified Code(s) : K74.69 - Other cirrhosis of liver
[2018-05-10] MEDS: PRAVASTATIN SOD 10 MG TAB PO SCH (20:51)
[2018-05-11 05:37] LABS: Hematocrit (blood only) 36.4 % (37-47); Hemoglobin 11.5 g/dL (12.0-16.0); Mean Corpuscular Hgb Conc 31.6 g/dL (32-36); Mean Corpuscular Volume 82.9 fL (80-100); Mean Platelet Volume 10.6 fL (7.4-10.4); Platelet Count 245 K/uL (130-400); RDW Coefficient of Variation 17.1 % (11.5-14.5); RDW Standard Deviation 51.7 fL (36.4-46.3); Red Blood Count 4.39 M/uL (4.2-5.4); White Blood Count 7.54 K/uL (4.8-10.8)
[2018-05-11 05:47] LABS: Prothrombin Time 19.4 Seconds (9.0-12.0)
[2018-05-11 06:06] LABS: BUN Creatinine Ratio 15.2 (10-20); Calcium 8.4 mg/dl (8.5-10.1); Est GFR (Non-African American) 40.6; Potassium 3.4 mmol/L (3.5-5.1)
[2018-05-11] MEDS: LEVOTHYROXINE SODIUM 150 MCG TABLET PO SCH (06:24)
[2018-05-11] MEDS: AMIODARONE 200 MG TAB PO SCH (08:31)
[2018-05-11] MEDS: PANTOprazole 40 MG TAB PO SCH (08:32)
[2018-05-11] MEDS: LISINOPRIL 5 MG TAB PO SCH (08:32)
[2018-05-11] MEDS: dilTIAZem HCL 120 MG CAPCR PO SCH (08:32)
[2018-05-11] MEDS: POTASSIUM CHLORIDE 20 MEQ TABCR PO SCH ×2 (08:33→12:20)
[2018-05-11] MEDS: SERTRALINE HCL 50 MG TABLET PO SCH (08:33)
[2018-05-11] MEDS: FUROSEMIDE 40 MG in SYRINGE 0 ML IV SCH (08:33)
[2018-05-11] MEDS: MAGNESIUM OXIDE 400 MG TAB PO SCH (08:33)
[2018-05-11] MEDS: RIFAXIMIN 550 MG TABLET PO SCH (08:34)
[2018-05-11] MEDS: INSULIN ASPART 100 UNITS/ML 3 ML PEN SC SCH ×2 (08:34→12:21)
[2018-05-11] MEDS: SPIRONOLACTONE 25 MG TAB PO SCH (08:46)
[2018-05-11] MEDS ORDERED: SPIRONOLACTONE 25 MG TAB PO SCH (09:00)
--- NOTE | 2018-05-11 14:26 | Discharge Summary ---
Date of Service May 11, 2018 Admission HPI Per Admitting Provider Janneth Watson is a 72 y.o female with history of A-fib, heart failure, Liver cirrhosis, RATLIFF, HTN, Diabetes and MELYSSA who presents to the ED today with complaint that she can't walk. History per patient. Daughter, , and son- in-law in the room with the patient. Today she needed assistance with walking to the bathroom and had a fall during the process. "My legs gave out on me." Denies dizziness/lightheadedness prior to the fall. Her called EMS and she was brought to the ED. States that for the past 2 month Janneth has been sleeping excessively at least 15 hours per day. Ms. Watson states that she is exhausted all of the time and finds herself falling asleep at 5pm each evening and awakens at 11am the next morning. CPAP was checked per PCP Dr. Robertson and found to be working well. She was prescribed Armodafinil to assist with drowsiness but it has not been helpful. She also has chronic incontinence of bowel/bladder reportedly because she is unable to get to the bathroom in time. Daughter reports that excessive fatigue is not normal for her mother. Reports that she is not able In addition her abdomen has become larger throughout the past 2 months. Per Mrs. Watson's daughter she was diagnosed with Cirrhosis in the summer of 2017 after an EGD and Colonoscopy was performed. PMHx: 1. A-fib 2. heart failure 3. Cirrhosis/RATLIFF 4. HTN 5. Diabetes 6. MELYSSA 7. Depression Surgical history: Hysterectomy Oophorectomy Cholecystectomy Social History: Lives with . Denies alcohol, drugs, or tobacco use. Principal Diagnosis Ambulatory Dysfunction and Deconditioning with weakness 2/2 to abdominal ascities Discharge Exam General: A&Ox3. NAD. Cooperative. HEENT: Atraumatic, normocephalic. Pulm: Moderate-Poor air movement. CTAB A&P. -wheezes, -rales, -rhonchi. Symmetrical chest rise. No respiratory distress. Cardiac: RRR, -mrg. Radial pulses intact and symmetrical. Abdominal: Nontender, softly distended. Ascitic fluid leak not present today. Discharge Data Allergies Allergy/AdvReac Type Severity Reaction Status Date / Time celecoxib Allergy Severe HIVES Verified 05/08/18 20:24 mivacurium Allergy Severe WHEEZES Verified 05/08/18 20:24 metoprolol AdvReac Mild DIZZINESS Verified 05/08/18 20:24 Consultations 05/09/18 01:04 ED Decision to Admit Stat 05/09/18 01:27 Consult Cardiology Stat Consult Case Management - Discharge Planning Routine Consult Gastroenterology Routine 05/09/18 01:46 Consult Cardiology Routine Ordered Studies 05/08/18 17:14 CT head/brain wo con Stat 05/08/18 17:15 US abdomen limited Stat 05/09/18 01:37 CT abd pelvis IV con only Urgent 05/09/18 10:01 US paracentesis abd w/image Routine Hospital Course (1) Cirrhosis of liver: Janneth is a 72yo F with a PMHx of Afib, diastolic heart failure, non- alcoholic liver cirrhosis, HTN, T2DM, and MELYSSA who presented to the ED with two months of increased fatigue and weakness. Abdominal ascites was present on admission. She improved clinically with paracentesis and Rifixamin treatment. Cirrhosis Janneth has a history of non-alcoholic cirrhosis. CT-A/P showed cirrhosis with portal hypertension evidenced by splenomegaly and varices, no free air. Abd US showed cirrhotic morphology, low volume ascites, portal vein suggestive of portal HTN vs thombus. She underwent paracentesis with removal of nearly 6L of fluid. She was also placed on Rifaxamin given a mildly elevated ammonia level. She was continued on furosemide 40mg BID IV and spironolactone 25mg PO BID. The day following paracentesis she had a dramatic increase in energy, and clinically felt stronger. Rifaxamin was unable to be continued due to cost, she will require weekly ammonia checks on discharge. (2) Ambulatory dysfunction: Janneth reported steadily chronic weakness acutely worse which hit a threshold of in the last few weeks which began to severely impair her ambulation. We suspected multiple contributing factors, including elements of polypharmacy, severe ascites, deconditioning, and some hypoglycemia. Her glimepiride was held and DM was managed with sliding scaled insulin. She was kept on her amiodarone as on chart review it appeared she responded poorly to rate control alone in the past and had dramatic fatigue with her afib prior to its initiation. PT/OT was consulted and recommended subacute inpatient rehab. She was discharged to rehab at [place]. (3) Ascites: She presented with abdominal ascities and had 5.8L of fluid removed on paracentesis. Improved clinically as noted above. Given her dramatic improvement and good BP tolerance of fluid removal would have a low threshold for therapeutic paracentesis in the future. (4) Afib: She had a history of afib which responded poorly to rate control in the past. On admission amiodarone, diltiazem, and warfarin were continued. Her EKG showed normal sinus rhythm with a mildly prolonged QT interval. She remained in sinus rhythm over the course of her admission. (5) T2DM (type 2 diabetes mellitus): She had not been taking [employer] insulin 10U at home due to feeling lows. She had been taking her glimepride at home. Her prior A1c was 6.0. She was maintained on SSI insulin during admission with good glycemic control. She was kept on Lisinopril 5mg daily during admission. She was discharged to resume her [employer] diabetic management, would continue to decrease/hold insulin if she is having lows in context of a tightly controlled A1C. (6) Chronic diastolic CHF (congestive heart failure): She has a history of heart failure. Her Echo showed LVEF 55-60% with severe LA dilation but no LVH or valvular abnormalities. She was diuresed as noted above and did not have any acute heart failure exacerbation. She was kept on [employer] pravastatin. (7) Hypokalemia: She has a history of hypokalemia likely secondary to Lasix. She was kept on her home doses or PO potassium repletion. (8) HLD (hyperlipidemia): She was continued on [employer] pravastatin 10mg during admission. (9) Depression: She was continued on [employer] sertraline during admission. (10) Hypertension: - [employer] lisinopril as above (11) GERD (gastroesophageal reflux disease): She was maintained on pantoprazole 20mg daily for GERD prophylaxsis. (12) DVT prophylaxis: She was maintained on [employer] warfarin. She was not reversed for paracentesis. Her INR remained therpeutic throughout admit. Total Time Total Time Spent Total Time Spent (In Minutes): <30 Discharge Plan Discharge Items Patient Disposition: Transfer [facility] Reason For Visit: FATIGUE, RATLIFF Discharge Diagnosis: Weakness, failure to thrive 2/2 abdominal ascites and deconditioning Condition: Good Discharge Goals: Improve disease control, Improve function and Therapeutic intervention Activity: Per 'Additional Instructions' section Non-emergency contact: Primary Care Provider Call non-emergency contact if: you have any medication questions, your symptoms worsen and your pain is concerning for you Diet: Carb Consistent or DM2 Addtl Provider Instructions: Janneth Watson was seen in the hospital for 2 months of weakness and inability to ambulate. Her differential was multifactorial. She improved clinically following paracentesis and Xifaxamin treatment. She was seen by physical therapy and requires rehab. On discharge, we make the following recommendations: 1) Weakness/failure to thrive - We recommend ongoing, aggressive physical and occupational therapy as tolerated - Poor nutrition in addition to her co-morbidities has led to low albumin levels , which lead to edema in her soft tissue. If nutrition is sub-optimal, consideration for dietitian referral for appropriate dietary supplementation would be warranted. 2) Liver cirrhosis with ascites - Though we think much of her improvement came from the paracentesis performed on 05/09/18, she clinically began to feel better after starting Xifaxan. This could not be continued on d/c due to cost. - Check ammonia levels weekly - Follow up with GI is needed in 1-2 weeks - In future, consider referral for paracentesis sooner with presence of symptomatic ascites 3) Esophageal varices - Naldol was initiated on 05/10/18 in view of presence of varices - However, if patient starts to feel sluggish or fatigued, this medication should be the first to be modified (either reduce the dose or discontinue altogether) 4) Edema - Continue furosemide. Original home dose was 60mg daily, but she is being discharged on furosemide 40mg BID given need for additional diuresis. - She was started on aldactone, which was titrated up to 50mg daily on discharge. - Recommend BMP check in 3 days, and titration of Aldactone to 100mg if tolerated, with potential reduction of furosemide to 40mg daily. - Monitor weights daily, with additional diuresis if 2-3lb water weight gain CHF - management of diuresis as above Afib - continue diltiazem, amiodarone, warfarin. With ongoing liver cirrhosis, dosing of warfarin will need to be monitored to prevent supratherapeutic INR, target to maintain INR 2-3. DM - Continue home regimen Glargine and glimeperide. Check BSG ac/hs Continue all other meds as prescribed. Prescriptions: New nadolol 20 mg tablet 20 mg PO DAILY Qty: 30 RF: 3 Continue pantoprazole 20 mg tablet,delayed release (DR/EC) 20 mg PO DAILY RF: 0 furosemide 20 mg tablet 60 mg PO QAM RF: 0 armodafinil 200 mg tablet 200 mg PO QAM RF: 0 pravastatin 10 mg tablet 10 mg PO HS RF: 0 diltiazem HCl 120 mg capsule,extended release 24hr 240 mg PO QAM RF: 0 diltiazem HCl 120 mg capsule,extended release 24hr 120 mg PO QPM RF: 0 amiodarone 200 mg tablet 100 mg PO DAILY RF: 0 cyanocobalamin (vitamin B-12) 1,000 mcg/mL Solution 1 ml IM MONTHLY RF: 0 glimepiride 2 mg tablet 1 mg PO BID PRN (Reason: Hyperglycemia) RF: 0 insulin glargine [Basaglar KwikPen U-100 Insulin] 100 unit/mL (3 mL) Insulin Pen 10 unit SUBCUT HS PRN (Reason: Hyperglycemia) RF: 0 levothyroxine 150 mcg tablet 150 mcg PO DAILY RF: 0 potassium chloride 20 mEq tablet,ER particles/crystals 20 meq PO TID RF: 0 sertraline 50 mg tablet 50 mg PO DAILY RF: 0 warfarin 5 mg tablet 5 mg PO [id number] RF: 0 warfarin [Jantoven] 2.5 mg Tablet 2.5 mg PO WK RF: 0 Stand-Alone Forms: [facility] Discharge Orders: Discharge Order (Routine); Ordered 05/09/18 Ordered By: Kael Nobles Skilled Items Patient informed of condition?: Yes DNR: No Discharge Level of Care: Skilled Communicable Disease: No Discharge Prognosis: Improving Admission Data Admit Date/Time: 05/08/18 23:15 Attending Provider: Josr Alvarez Admit Provider: Elvin Vragas Primary Care Provider: Pilar Robertson Other Providers: Aquilino Caban ; Leonardo Gonzalez ; Ethan Nicholas Service: Medical Other Interventions: Discharge Summary Assessment (RN) Last Done: 05/11/18 14:56 DC Date/Time DO NOT enter until pt leaves facility: 05/11/18 16:15 Supervising Physician Co-Signing Physician Notes I personally examined the patient and verified all lobo points of history and exam, discussed case, and agree with decision making with Dr Power. Feeling good overall. Ready to go to SNF. Optimistic about how she is going to do with therapy. Vitals noted, in general she is very fatigued appearing but no distress. HEENT normocephalic atraumatic mucous membranes are moist. Skin is no rashes pallor or icterus. Breathing is unlabored no accessory muscle use. Neuro shows no focal deficits Weakness/failure to thrive -Appears multifactorial with elements of her liver disease as well as deconditioning, as well as lesser contributions from polypharmacy and may be deficiencies -Paracentesis seems to have helped, continue management of liver disease, and as needed repeat therapeutic paracenteses -PT/OT and nutrition support to be ongoing at SNF -replaced mag and K, B12 was okay -Stopped diabetes meds -Continue to review for other meds that may be able to be stopped -Following regards to her ammonia, this does not seem to have been a contributor , but she was on rifaximin for a day or so. The cost was almost prohibitive, and it was not clear that it was really providing a benefit. After careful discussions with the patient, we did agreed that following her ammonia weekly, and following her status, with quick threshold to resume rifaximin should she show any decline that could relate to her ammonia or otherwise be unexplained would be more reasonable than blindly continuing with an extremely expensive medicine that may be giving her no benefit. Otherwise outpatient follow-up with GI in this regard. -She was also recently initiated on a beta-luís for her portal hypertension, but this will hopefully reduce her accumulation of cirrhosis, if it appears to be causing her fatigue, obviously this dose should be modified reduced or stopped. Anticipate SNF once possible Resident Activity Tracking Resident Involvement: Resident Care Provided Care Provided: Adult Hospital Medicine
[2018-05-15] MEDS ORDERED: WARFARIN SOD 2.5 MG TAB PO SCH (16:00)
== END 2018-05-11 16:15 | DRG 433 ==
LOC: ED 16:54 → 4E 23:15 → SUATTDRO 23:15 → 4E 05-09 01:06